=== PATIENT | male | born 1965 | race African-American/Black ===

== ENCOUNTER 2016-12-26 08:17 | Inpatient (IN) | payer OTHER ==
[~2016-12-26] VITALS: Ht 182.9 cm; Wt 93.6 kg
[~2016-12-26 08:17] MED LIST: AUGMENTIN 875 M1 TAB PO; DEPAKENE; DEPAKOTE 250MG250 MG PO; HCTZ 25MG TAB25 MG PO; LORTAB 5/500 501 TAB PO; MOTRIN800 MG PO; NAPROSYN500 MG PO; NORCO PO
[2016-12-26 08:31] VITALS: BP 130/76; PULSE 66; TEMP 98.3
[2016-12-26 09:12] LABS: BASO % 0.4 % (0.0-2.0); EOS # 0.1 (0.0-0.7); EOS % 1.5 % (0-4.0); GRAN # 2.7 (1.4-6.5); GRAN % 51.6 % (42.2-75.2); LYMPH # 1.4 (1.2-3.4); LYMPH % 26.3 % (20.0-51.0); MEAN CELL VOLUME 93 fl (80.0-100.0); MEAN CORPUSCULAR HGB CONC 31 g/dl (33.0-37.0); MONO % 19.8 % (1.7-9.3); PLATELET COUNT 139 K/mm3 (130-400); RED BLOOD COUNT 3.25 M/mm3 (4.20-5.60); WHITE BLOOD COUNT 5.2 K/mm3 (4.8-10.8)
[2016-12-26 09:13] LABS: HEMATOCRIT 30.3 % (42.0-52.0); HEMOGLOBIN 9.4 g/dl (13.5-18.0); MEAN CORPUSCULAR HEMOGLOBIN 29 pg (27.0-31.0)
[2016-12-26 09:26] LABS: ADJUSTED CALCIUM 9.2 mg/dL (8.4-10.2); ALBUMIN 3.6 gm/dL (3.5-5.0); BILIRUBIN,TOTAL 0.6 mg/dL (0.0-1.0); CALCIUM 8.9 mg/dL (8.4-10.2); POTASSIUM 4.5 mmol/L (3.4-5.0); TOTAL PROTEIN 7.3 gm/dL (6.4-8.2)
[2016-12-26] MEDS ORDERED: ZYLOPRIM 100MG100 MG PO (09:27)
[2016-12-26] MEDS ORDERED: NORVASC 10MG10 MG PO (09:27)
[2016-12-26] MEDS ORDERED: TENORMIN 2525 MG/TAB PO (09:28)
[2016-12-26] MEDS ORDERED: CALCITRIOL PO (09:28)
[2016-12-26] MEDS ORDERED: PHOS LO PO (09:29)
[2016-12-26] MEDS ORDERED: FERROUS SU325 MG/TAB PO (09:30)
[2016-12-26] MEDS ORDERED: COLACE 100100 MG/CAP PO (09:30)
[2016-12-26 09:32] LABS: CREATININE, serum 9.81 mg/dL (0.66-1.25)
[2016-12-26] MEDS ORDERED: CELLCEPT 250MG250 MG PO (09:32)
[2016-12-26] MEDS ORDERED: ZYPREXA7.5 MG PO (09:33)
[2016-12-26] MEDS ORDERED: SODIUM BICARBO650 MG PO (09:33)
[2016-12-26] MEDS ORDERED: DEPAKOTE 250MG250 MG PO (09:34)
[2016-12-26 15:46] VITALS: BP 107/68; PULSE 59; TEMP 97.8
[2016-12-26 21:06] VITALS: BP 118/85; PULSE 66; TEMP 98.6
[2016-12-27 00:28] LABS: HEPATITIS B CORE AB,TOTAL Negative (()); HEPATITIS B SURFACE AB-QL Positive (())
[2016-12-27 00:43] VITALS: BP 112/63; PULSE 49; TEMP 97.5
[2016-12-27 04:04] VITALS: BP 105/66; PULSE 51; TEMP 97.5
[2016-12-27 07:29] LABS: ALBUMIN 3.6 gm/dL (3.5-5.0); CALCIUM 9.1 mg/dL (8.4-10.2); PHOSPHOROUS 6.9 mg/dL (2.5-4.5); POTASSIUM 4.2 mmol/L (3.4-5.0)
[2016-12-27 07:35] LABS: CREATININE, serum 8.2 mg/dL (0.66-1.25)
[2016-12-27 07:49] VITALS: BP 119/77; PULSE 47; TEMP 97.9
[2016-12-27 14:51] VITALS: BP 121/65; PULSE 66
[2016-12-27 15:36] VITALS: BP 125/70; PULSE 68; TEMP 98.1
[2016-12-27 20:35] VITALS: BP 125/82; PULSE 90; TEMP 97.9
[2016-12-28 00:14] VITALS: BP 127/80; PULSE 61; TEMP 97.8
[2016-12-28 03:20] VITALS: BP 109/54; PULSE 55; TEMP 98
[2016-12-28 07:39] VITALS: BP 116/75; PULSE 71; TEMP 97.7
[2016-12-28 07:42] LABS: ALBUMIN 3.5 gm/dL (3.5-5.0); CALCIUM 9.3 mg/dL (8.4-10.2); PHOSPHOROUS 6.1 mg/dL (2.5-4.5)
[2016-12-28 07:44] LABS: CREATININE, serum 6.93 mg/dL (0.66-1.25)
[2016-12-28 12:02] VITALS: BP 114/78; PULSE 64; TEMP 98.1
[2016-12-28] MEDS ORDERED: NEPHROCAP PO (15:42)
[2016-12-28] MEDS ORDERED: LASIX 40MG TABL40 MG PO (15:42)
== END 2016-12-28 16:16 | disposition home or self-care (01) | DRG 682 ==
LOC: SDCO 08:17 → MEDICAL 08:18
PROVIDERS: Internal Medicine Nephrology; Nurse Practitioner
PROC: 5A1D70Z Performance of Urinary Filtration, Intermittent, Less than 6 Hours Per Day (ICD-10-PCS; principal; 2016-12-26)
DX: I12.0 Hypertensive chronic kidney disease with stage 5 chronic kidney disease or end stage renal disease (principal); N18.6 End stage renal disease; D63.1 Anemia in chronic kidney disease; F25.9 Schizoaffective disorder, unspecified
CPT/HCPCS: J0881

== ENCOUNTER → 2019-07-10 | Outpatient (CLI) | payer BC ==
[~2019-07-10] MED LIST changes: +CALCITRIOL PO; +CELLCEPT 250MG250 MG PO; +COLACE 100100 MG/CAP PO; +FERROUS SU325 MG/TAB PO; +LASIX 40MG TABL40 MG PO; +NEPHROCAP PO; +NORVASC 10MG10 MG PO; +PHOS LO PO; +SODIUM BICARBO650 MG PO; +TENORMIN 2525 MG/TAB PO; +ZYLOPRIM 100MG100 MG PO; +ZYPREXA7.5 MG PO
== END ==
LOC: ZCOL.LAB 17:25
DX: Z20.828 Contact with and (suspected) exposure to other viral communicable diseases (principal)

== ENCOUNTER → 2020-08-20 | Outpatient (CLI) | payer BC, MEDICARE ==
[2020-08-20 06:23] LABS: COLLECTION METHOD CLEAN CATCH
[2020-08-20 06:36] LABS: MEAN CELL VOLUME 102 fl (80.0-100.0); MEAN CORPUSCULAR HGB CONC 30 g/dl (33.0-37.0); PH 6 (5-8); PLATELET COUNT 118 K/mm3 (130-400); RED BLOOD COUNT 3.01 M/mm3 (4.20-5.60); REDCELL DISTRIBUTION WIDTH-CV 14.7 % (11.5-14.5); SQUAMOUS EPITHELIAL None Seen /hpf; URINE APPEARANCE Clear; URINE BACTERIA None Seen /hpf; URINE BILIRUBIN Negative (NEGATIVE); URINE BLOOD Negative (NEGATIVE); URINE COLOR Yellow; URINE GLUCOSE Negative (NEGATIVE); URINE KETONE Negative (NEGATIVE); URINE LEUKOCYTE ESTERASE Negative (NEGATIVE); URINE NITRATE Negative (NEGATIVE); URINE PROTEIN(semi-quant) Negative (NEGATIVE); URINE RBC 0-2 /hpf; URINE UROBILINOGEN Negative (NEGATIVE)
[2020-08-20 06:44] LABS: ALBUMIN 3.7 gm/dL (3.5-5.0); CALCIUM 10.1 mg/dL (8.4-10.2); CREATININE, serum 1.97 (0.66-1.25); POTASSIUM 4.6 mmol/L (3.4-5.0)
[2020-08-20 07:13] LABS: PHOSPHOROUS 2.6 mg/dL (2.5-4.5)
[2020-08-20 07:58] LABS: BAND 3 % (0-10); HYPOCHROMIA 1+; LYMPHOCYTE 50 % (20.0-51.0); METAMYELOCYTE 1 % (0-0); NEUTROPHILS 40 % (42.0-75.2); OVALOCYTES 1+; PLATELET ESTIMATE DECREASED (NORMAL); TEAR DROP CELLS 1+
[2020-08-20 08:21] LABS: HEMATOCRIT 30.6 % (42.0-52.0); HEMOGLOBIN 9.3 g/dl (13.5-18.0); MEAN CORPUSCULAR HEMOGLOBIN 31 pg (27.0-31.0)
[2020-08-20 23:42] LABS: PROGRAF 7.8 ng/mL (5.0-15.0)
[2020-08-21 14:53] LABS: CYTOMEGALOVIRUS DNA PCR 750 IU/mL (<=49); CYTOMEGALOVIRUS DNA PCR LOG 2.88 (<=1.69)
== END ==
LOC: COL.LAB 05:28
DX: Z48.22 Encounter for aftercare following kidney transplant (principal); Z79.899 Other long term (current) drug therapy

== ENCOUNTER → 2020-09-03 | Outpatient (CLI) | payer BC, MEDICARE ==
[2020-09-03 06:11] LABS: COLLECTION METHOD CLEAN CATCH
[2020-09-03 06:15] LABS: BASO % 0.8 % (0.0-2.0); EOS % 0.8 % (0-4.0); GRAN # 1.6 (1.4-6.5); HEMOGLOBIN 10.6 g/dl (13.5-18.0); LYMPH # 1.4 (1.2-3.4); LYMPH % 39.3 % (20.0-51.0); MEAN CELL VOLUME 97 fl (80.0-100.0); MEAN CORPUSCULAR HEMOGLOBIN 30 pg (27.0-31.0); MEAN CORPUSCULAR HGB CONC 31 g/dl (33.0-37.0); MONO # 0.5 (0.1-0.6); MONO % 12.7 % (1.7-9.3); PLATELET COUNT 151 K/mm3 (130-400); RED BLOOD COUNT 3.55 M/mm3 (4.20-5.60); REDCELL DISTRIBUTION WIDTH-CV 14.3 % (11.5-14.5)
[2020-09-03 06:21] LABS: PH 6 (5-8); SQUAMOUS EPITHELIAL None Seen /hpf; URINE APPEARANCE Clear; URINE BACTERIA None Seen /hpf; URINE BILIRUBIN Negative (NEGATIVE); URINE BLOOD Negative (NEGATIVE); URINE COLOR Yellow; URINE GLUCOSE Negative (NEGATIVE); URINE KETONE Trace (NEGATIVE); URINE LEUKOCYTE ESTERASE Negative (NEGATIVE); URINE NITRATE Negative (NEGATIVE); URINE PROTEIN(semi-quant) Negative (NEGATIVE); URINE RBC 0-2 /hpf; URINE UROBILINOGEN Negative (NEGATIVE)
[2020-09-03 06:28] LABS: ALBUMIN 3.9 gm/dL (3.5-5.0); CALCIUM 10.5 mg/dL (8.4-10.2); CREATININE, serum 1.9 (0.66-1.25); HEMATOCRIT 34.3 % (42.0-52.0); PHOSPHOROUS 3.2 mg/dL (2.5-4.5); POTASSIUM 4.8 mmol/L (3.4-5.0)
[2020-09-04 00:14] LABS: PROGRAF 14.1 ng/mL (5.0-15.0)
[2020-09-04 14:50] LABS: CYTOMEGALOVIRUS DNA PCR 207 IU/mL (<=49); CYTOMEGALOVIRUS DNA PCR LOG 2.32 (<=1.69)
== END ==
LOC: COL.LAB 05:38
DX: Z48.22 Encounter for aftercare following kidney transplant (principal); Z79.899 Other long term (current) drug therapy

== ENCOUNTER → 2020-09-10 | Outpatient (CLI) | payer BC, MEDICARE ==
[2020-09-10 07:36] LABS: COLLECTION METHOD CLEAN CATCH
[2020-09-10 07:37] LABS: HEMOGLOBIN 10.6 g/dl (13.5-18.0); MEAN CELL VOLUME 99 fl (80.0-100.0); MEAN CORPUSCULAR HEMOGLOBIN 30 pg (27.0-31.0); MEAN CORPUSCULAR HGB CONC 30 g/dl (33.0-37.0); MEAN PLATELET VOLUME 9.7 fl (7.4-10.4); PLATELET COUNT 151 K/mm3 (130-400); RED BLOOD COUNT 3.55 M/mm3 (4.20-5.60); REDCELL DISTRIBUTION WIDTH-CV 14.6 % (11.5-14.5)
[2020-09-10 07:39] LABS: HEMATOCRIT 35.1 % (42.0-52.0)
[2020-09-10 07:41] LABS: PH 6 (5-8); SQUAMOUS EPITHELIAL None Seen /hpf; URINE APPEARANCE Clear; URINE BACTERIA None Seen /hpf; URINE BILIRUBIN Negative (NEGATIVE); URINE BLOOD Negative (NEGATIVE); URINE COLOR Yellow; URINE GLUCOSE Negative (NEGATIVE); URINE KETONE Negative (NEGATIVE); URINE LEUKOCYTE ESTERASE Negative (NEGATIVE); URINE NITRATE Negative (NEGATIVE); URINE PROTEIN(semi-quant) Negative (NEGATIVE); URINE RBC 0-2 /hpf; URINE UROBILINOGEN Negative (NEGATIVE)
[2020-09-10 07:47] LABS: CALCIUM 10.2 mg/dL (8.4-10.2); CREATININE, serum 1.77 (0.66-1.25); MAGNESIUM 1.9 mg/dL (1.6-2.3)
[2020-09-10 08:07] LABS: BASOPHIL 1 % (0-2); EOSINOPHIL 1 % (0-4); LYMPHOCYTE 24 % (20.0-51.0); METAMYELOCYTE 1 % (0-0); NEUTROPHILS 60 % (42.0-75.2)
[2020-09-10 08:08] LABS: HYPOCHROMIA 3+; PLATELET ESTIMATE NORMAL (NORMAL)
[2020-09-10 22:07] LABS: PROGRAF 8.6 ng/mL (5.0-15.0)
[2020-09-15 14:18] LABS: CYTOMEGALOVIRUS DNA PCR 128 IU/mL (<=49); CYTOMEGALOVIRUS DNA PCR LOG 2.11 (<=1.69)
== END ==
LOC: COL.LAB 06:58
DX: Z48.22 Encounter for aftercare following kidney transplant (principal); Z79.899 Other long term (current) drug therapy

== ENCOUNTER → 2020-10-01 | Outpatient (CLI) | payer BC, MEDICARE ==
[2020-10-01 08:51] LABS: BASO % 0.7 % (0.0-2.0); EOS % 1.1 % (0-4.0); GRAN # 1.4 (1.4-6.5); GRAN % 52.3 % (42.2-75.2); HEMATOCRIT 37.3 % (42.0-52.0); HEMOGLOBIN 11.3 g/dl (13.5-18.0); LYMPH # 1.1 (1.2-3.4); MEAN CELL VOLUME 99 fl (80.0-100.0); MEAN CORPUSCULAR HEMOGLOBIN 30 pg (27.0-31.0); MEAN CORPUSCULAR HGB CONC 30 g/dl (33.0-37.0); MEAN PLATELET VOLUME 9.9 fl (7.4-10.4); MONO # 0.2 (0.1-0.6); MONO % 5.5 % (1.7-9.3); PLATELET COUNT 123 K/mm3 (130-400); RED BLOOD COUNT 3.77 M/mm3 (4.20-5.60); REDCELL DISTRIBUTION WIDTH-CV 14.7 % (11.5-14.5)
[2020-10-01 09:01] LABS: CALCIUM 10.4 mg/dL (8.4-10.2); CREATININE, serum 1.92 (0.66-1.25); MAGNESIUM 1.9 mg/dL (1.6-2.3); PHOSPHOROUS 3.1 mg/dL (2.5-4.5); POTASSIUM 5.1 mmol/L (3.4-5.0)
[2020-10-01 09:28] LABS: COLLECTION METHOD CLEAN CATCH
[2020-10-01 09:33] LABS: PH 6 (5-8); SQUAMOUS EPITHELIAL None Seen /hpf; URINE APPEARANCE Clear; URINE BACTERIA None Seen /hpf; URINE BILIRUBIN Negative (NEGATIVE); URINE BLOOD Negative (NEGATIVE); URINE COLOR Yellow; URINE GLUCOSE Negative (NEGATIVE); URINE KETONE Negative (NEGATIVE); URINE LEUKOCYTE ESTERASE Negative (NEGATIVE); URINE NITRATE Negative (NEGATIVE); URINE PROTEIN(semi-quant) Negative (NEGATIVE); URINE RBC None Seen /hpf; URINE UROBILINOGEN Negative (NEGATIVE)
[2020-10-02 00:25] LABS: PROGRAF 10.9 ng/mL (5.0-15.0)
[2020-10-06 12:47] LABS: CYTOMEGALOVIRUS DNA PCR Detected <50 IU/mL (()); CYTOMEGALOVIRUS DNA PCR LOG Detected <1.70 (())
== END ==
LOC: COL.LAB 06:55
DX: Z48.22 Encounter for aftercare following kidney transplant (principal)

== ENCOUNTER → 2020-10-16 | Outpatient (CLI) | payer BC, MEDICARE ==
[2020-10-16 08:54] LABS: BASO % 0.9 % (0.0-2.0); EOS % 0.9 % (0-4.0); GRAN # 0.9 (1.4-6.5); GRAN % 39.7 % (42.2-75.2); HEMATOCRIT 38.7 % (42.0-52.0); HEMOGLOBIN 11.8 g/dl (13.5-18.0); LYMPH % 45.6 % (20.0-51.0); MEAN CELL VOLUME 100 fl (80.0-100.0); MEAN CORPUSCULAR HEMOGLOBIN 31 pg (27.0-31.0); MEAN CORPUSCULAR HGB CONC 31 g/dl (33.0-37.0); MEAN PLATELET VOLUME 9.9 fl (7.4-10.4); MONO # 0.3 (0.1-0.6); PLATELET COUNT 130 K/mm3 (130-400); RED BLOOD COUNT 3.86 M/mm3 (4.20-5.60); REDCELL DISTRIBUTION WIDTH-CV 14.5 % (11.5-14.5)
[2020-10-16 09:04] LABS: ALBUMIN 4.1 gm/dL (3.5-5.0); CALCIUM 10.1 mg/dL (8.4-10.2); CREATININE, serum 1.68 (0.66-1.25); POTASSIUM 4.9 mmol/L (3.4-5.0)
[2020-10-16 09:52] LABS: COLLECTION METHOD CLEAN CATCH
[2020-10-16 10:13] LABS: PH 6 (5-8); SQUAMOUS EPITHELIAL None Seen /hpf; URINE APPEARANCE Clear; URINE BACTERIA None Seen /hpf; URINE BILIRUBIN Negative (NEGATIVE); URINE BLOOD Negative (NEGATIVE); URINE COLOR Straw; URINE GLUCOSE Negative (NEGATIVE); URINE KETONE Negative (NEGATIVE); URINE LEUKOCYTE ESTERASE Negative (NEGATIVE); URINE NITRATE Negative (NEGATIVE); URINE PROTEIN(semi-quant) Negative (NEGATIVE); URINE RBC None Seen /hpf; URINE UROBILINOGEN Negative (NEGATIVE)
[2020-10-17 00:51] LABS: PROGRAF 7.1 ng/mL (5.0-15.0)
[2020-10-20 15:43] LABS: CYTOMEGALOVIRUS DNA PCR <50 IU/mL (<=49); CYTOMEGALOVIRUS DNA PCR LOG Detected <1.70 (())
== END ==
LOC: COL.LAB 07:53
DX: Z48.22 Encounter for aftercare following kidney transplant (principal); Z79.899 Other long term (current) drug therapy; Z94.0 Kidney transplant status

== ENCOUNTER → 2020-10-29 | Outpatient (CLI) | payer BC, MEDICARE ==
[2020-10-29 08:27] LABS: COLLECTION METHOD CLEAN CATCH
[2020-10-29 08:30] LABS: BASO % 1.2 % (0.0-2.0); EOS % 0.8 % (0-4.0); GRAN # 0.8 (1.4-6.5); GRAN % 32.3 % (42.2-75.2); HEMATOCRIT 40.5 % (42.0-52.0); HEMOGLOBIN 12.2 g/dl (13.5-18.0); LYMPH # 1.3 (1.2-3.4); MEAN CELL VOLUME 101 fl (80.0-100.0); MEAN CORPUSCULAR HEMOGLOBIN 31 pg (27.0-31.0); MEAN CORPUSCULAR HGB CONC 30 g/dl (33.0-37.0); MEAN PLATELET VOLUME 9.9 fl (7.4-10.4); MONO # 0.4 (0.1-0.6); MONO % 14.7 % (1.7-9.3); PLATELET COUNT 124 K/mm3 (130-400); REDCELL DISTRIBUTION WIDTH-CV 14.6 % (11.5-14.5)
[2020-10-29 08:42] LABS: PH 6 (5-8); SQUAMOUS EPITHELIAL None Seen /hpf; URINE APPEARANCE Clear; URINE BACTERIA None Seen /hpf; URINE BILIRUBIN Negative (NEGATIVE); URINE BLOOD Negative (NEGATIVE); URINE COLOR Straw; URINE GLUCOSE Negative (NEGATIVE); URINE KETONE Negative (NEGATIVE); URINE LEUKOCYTE ESTERASE Negative (NEGATIVE); URINE NITRATE Negative (NEGATIVE); URINE PROTEIN(semi-quant) Negative (NEGATIVE); URINE RBC 0-2 /hpf; URINE UROBILINOGEN Negative (NEGATIVE)
[2020-10-29 08:43] LABS: CALCIUM 9.9 mg/dL (8.4-10.2); CREATININE, serum 1.79 (0.66-1.25); MAGNESIUM 1.8 mg/dL (1.6-2.3); PHOSPHOROUS 3.3 mg/dL (2.5-4.5)
[2020-10-29 23:29] LABS: PROGRAF 14.9 ng/mL (5.0-15.0)
[2020-10-30 13:07] LABS: CYTOMEGALOVIRUS DNA PCR Detected <50 IU/mL (()); CYTOMEGALOVIRUS DNA PCR LOG Detected <1.70 (())
== END ==
LOC: COL.LAB 07:07
DX: Z48.22 Encounter for aftercare following kidney transplant (principal); Z79.899 Other long term (current) drug therapy

== ENCOUNTER → 2020-11-12 | Outpatient (CLI) | payer BC, MEDICARE ==
[2020-11-12 07:55] LABS: HEMATOCRIT 39.5 % (42.0-52.0); HEMOGLOBIN 12.2 g/dl (13.5-18.0); MEAN CELL VOLUME 99 fl (80.0-100.0); MEAN CORPUSCULAR HEMOGLOBIN 31 pg (27.0-31.0); MEAN CORPUSCULAR HGB CONC 31 g/dl (33.0-37.0); MEAN PLATELET VOLUME 10.2 fl (7.4-10.4); PH 7 (5-8); PLATELET COUNT 107 K/mm3 (130-400); RED BLOOD COUNT 3.99 M/mm3 (4.20-5.60); REDCELL DISTRIBUTION WIDTH-CV 14.1 % (11.5-14.5); SQUAMOUS EPITHELIAL 0-2 /hpf; URINE APPEARANCE Clear; URINE BACTERIA None Seen /hpf; URINE BILIRUBIN Negative (NEGATIVE); URINE BLOOD Negative (NEGATIVE); URINE COLOR Yellow; URINE GLUCOSE Negative (NEGATIVE); URINE KETONE Negative (NEGATIVE); URINE LEUKOCYTE ESTERASE Negative (NEGATIVE); URINE NITRATE Negative (NEGATIVE); URINE PROTEIN(semi-quant) Negative (NEGATIVE); URINE RBC None Seen /hpf; URINE UROBILINOGEN Negative (NEGATIVE)
[2020-11-12 07:59] LABS: ALBUMIN 3.9 gm/dL (3.5-5.0); CREATININE, serum 1.78 (0.66-1.25); MAGNESIUM 1.6 mg/dL (1.6-2.3); PHOSPHOROUS 2.9 mg/dL (2.5-4.5); POTASSIUM 4.7 mmol/L (3.4-5.0)
[2020-11-12 08:04] LABS: BAND 3 % (0-10); EOSINOPHIL 1 % (0-4); LYMPHOCYTE 49 % (20.0-51.0); METAMYELOCYTE 1 % (0-0); NEUTROPHILS 35 % (42.0-75.2); PLATELET ESTIMATE DECREASED (NORMAL)
[2020-11-12 08:05] LABS: HYPOCHROMIA 1+
[2020-11-12 08:27] LABS: COLLECTION METHOD CLEAN CATCH
[2020-11-13 17:48] LABS: CYTOMEGALOVIRUS DNA PCR <50 IU/mL (<=49); CYTOMEGALOVIRUS DNA PCR LOG Detected <1.70 (())
== END ==
LOC: COL.LAB 06:55
DX: Z48.22 Encounter for aftercare following kidney transplant (principal); Z79.899 Other long term (current) drug therapy

== ENCOUNTER → 2020-11-13 | Outpatient (CLI) | payer BC, MEDICARE | LOC: COL.LAB 14:23 | DX: Z94.0 Kidney transplant status (principal) ==

== ENCOUNTER → 2020-11-24 | Outpatient (CLI) | payer BC, MEDICARE ==
[2020-11-24 07:46] LABS: COLLECTION METHOD CLEAN CATCH
[2020-11-24 07:58] LABS: EOS % 1.4 % (0-4.0); GRAN # 0.7 (1.4-6.5); GRAN % 33.8 % (42.2-75.2); HEMATOCRIT 37.5 % (42.0-52.0); HEMOGLOBIN 11.9 g/dl (13.5-18.0); LYMPH % 46.9 % (20.0-51.0); MEAN CELL VOLUME 98 fl (80.0-100.0); MEAN CORPUSCULAR HEMOGLOBIN 31 pg (27.0-31.0); MEAN CORPUSCULAR HGB CONC 32 g/dl (33.0-37.0); MEAN PLATELET VOLUME 9.7 fl (7.4-10.4); MONO # 0.3 (0.1-0.6); MONO % 15.9 % (1.7-9.3); PLATELET COUNT 131 K/mm3 (130-400); RED BLOOD COUNT 3.82 M/mm3 (4.20-5.60); REDCELL DISTRIBUTION WIDTH-CV 14.2 % (11.5-14.5)
[2020-11-24 08:00] LABS: ALBUMIN 3.8 gm/dL (3.5-5.0); CALCIUM 10.2 mg/dL (8.4-10.2); CREATININE, serum 1.7 (0.66-1.25); MAGNESIUM 1.8 mg/dL (1.6-2.3); PHOSPHOROUS 3.2 mg/dL (2.5-4.5); POTASSIUM 4.7 mmol/L (3.4-5.0)
[2020-11-24 08:15] LABS: PH 6 (5-8); SQUAMOUS EPITHELIAL None Seen /hpf; URINE APPEARANCE Clear; URINE BACTERIA None Seen /hpf; URINE BILIRUBIN Negative (NEGATIVE); URINE BLOOD Negative (NEGATIVE); URINE COLOR Straw; URINE GLUCOSE Negative (NEGATIVE); URINE KETONE Negative (NEGATIVE); URINE LEUKOCYTE ESTERASE Negative (NEGATIVE); URINE NITRATE Negative (NEGATIVE); URINE PROTEIN(semi-quant) Negative (NEGATIVE); URINE RBC 0-2 /hpf; URINE UROBILINOGEN Negative (NEGATIVE)
[2020-11-24 23:00] LABS: PROGRAF 9.7 ng/mL (5.0-15.0)
[2020-11-26 08:18] LABS: CYTOMEGALOVIRUS DNA PCR <50 IU/mL (<=49); CYTOMEGALOVIRUS DNA PCR LOG Detected <1.70 (())
== END ==
LOC: COL.LAB 07:02
DX: Z48.22 Encounter for aftercare following kidney transplant (principal); Z79.899 Other long term (current) drug therapy

== ENCOUNTER → 2020-12-01 | Outpatient (CLI) | payer BC, MEDICARE ==
[2020-12-01 07:51] LABS: COLLECTION METHOD CLEAN CATCH
[2020-12-01 08:01] LABS: BASO % 0.9 % (0.0-2.0); EOS % 0.9 % (0-4.0); GRAN # 0.6 (1.4-6.5); GRAN % 28.5 % (42.2-75.2); HEMATOCRIT 38.2 % (42.0-52.0); HEMOGLOBIN 12.1 g/dl (13.5-18.0); LYMPH # 1.2 (1.2-3.4); LYMPH % 53.4 % (20.0-51.0); MEAN CELL VOLUME 97 fl (80.0-100.0); MEAN CORPUSCULAR HEMOGLOBIN 31 pg (27.0-31.0); MEAN CORPUSCULAR HGB CONC 32 g/dl (33.0-37.0); MEAN PLATELET VOLUME 9.7 fl (7.4-10.4); MONO # 0.3 (0.1-0.6); MONO % 15.4 % (1.7-9.3); PLATELET COUNT 114 K/mm3 (130-400); RED BLOOD COUNT 3.93 M/mm3 (4.20-5.60); REDCELL DISTRIBUTION WIDTH-CV 13.9 % (11.5-14.5)
[2020-12-01 08:05] LABS: ALBUMIN 3.9 gm/dL (3.5-5.0); CALCIUM 9.8 mg/dL (8.4-10.2); CREATININE, serum 1.98 (0.66-1.25); MAGNESIUM 1.9 mg/dL (1.6-2.3); PH 7 (5-8); PHOSPHOROUS 3.6 mg/dL (2.5-4.5); SQUAMOUS EPITHELIAL None Seen /hpf; URINE APPEARANCE Clear; URINE BACTERIA None Seen /hpf; URINE BILIRUBIN Negative (NEGATIVE); URINE BLOOD Negative (NEGATIVE); URINE COLOR Straw; URINE GLUCOSE Negative (NEGATIVE); URINE KETONE Negative (NEGATIVE); URINE LEUKOCYTE ESTERASE Negative (NEGATIVE); URINE NITRATE Negative (NEGATIVE); URINE PROTEIN(semi-quant) Negative (NEGATIVE); URINE RBC 0-2 /hpf; URINE UROBILINOGEN Negative (NEGATIVE)
[2020-12-02 13:59] LABS: PROGRAF 17.2 ng/mL (5.0-15.0)
[2020-12-05 08:48] LABS: CYTOMEGALOVIRUS DNA PCR Detected <50 IU/mL (()); CYTOMEGALOVIRUS DNA PCR LOG Detected <1.70 (())
== END ==
LOC: COL.LAB 07:19
DX: Z48.22 Encounter for aftercare following kidney transplant (principal); Z79.899 Other long term (current) drug therapy

== ENCOUNTER → 2020-12-08 | Outpatient (CLI) | payer BC, MEDICARE ==
[2020-12-08 08:16] LABS: GRAN # 0.6 (1.4-6.5); GRAN % 29.9 % (42.2-75.2); HEMATOCRIT 38.7 % (42.0-52.0); HEMOGLOBIN 12.1 g/dl (13.5-18.0); LYMPH # 1.1 (1.2-3.4); LYMPH % 53.8 % (20.0-51.0); MEAN CELL VOLUME 99 fl (80.0-100.0); MEAN CORPUSCULAR HEMOGLOBIN 31 pg (27.0-31.0); MEAN CORPUSCULAR HGB CONC 31 g/dl (33.0-37.0); MEAN PLATELET VOLUME 10.1 fl (7.4-10.4); MONO # 0.3 (0.1-0.6); MONO % 13.8 % (1.7-9.3); PLATELET COUNT 111 K/mm3 (130-400); RED BLOOD COUNT 3.93 M/mm3 (4.20-5.60); REDCELL DISTRIBUTION WIDTH-CV 13.6 % (11.5-14.5)
[2020-12-08 08:30] LABS: PH 7 (5-8); SQUAMOUS EPITHELIAL 0-2 /hpf; URINE APPEARANCE Clear; URINE BACTERIA None Seen /hpf; URINE BILIRUBIN Negative (NEGATIVE); URINE BLOOD Negative (NEGATIVE); URINE COLOR Straw; URINE GLUCOSE Negative (NEGATIVE); URINE KETONE Negative (NEGATIVE); URINE LEUKOCYTE ESTERASE Negative (NEGATIVE); URINE NITRATE Negative (NEGATIVE); URINE PROTEIN(semi-quant) Negative (NEGATIVE); URINE RBC None Seen /hpf; URINE UROBILINOGEN Negative (NEGATIVE)
[2020-12-08 08:31] LABS: ALBUMIN 3.9 gm/dL (3.5-5.0); CREATININE, serum 1.98 (0.66-1.25); MAGNESIUM 1.9 mg/dL (1.6-2.3); PHOSPHOROUS 3.6 mg/dL (2.5-4.5); POTASSIUM 4.8 mmol/L (3.4-5.0)
[2020-12-08 08:56] LABS: COLLECTION METHOD CLEAN CATCH
[2020-12-16 08:03] LABS: CYTOMEGALOVIRUS DNA PCR <50 IU/mL (<=49); CYTOMEGALOVIRUS DNA PCR LOG Detected <1.70 (())
== END ==
LOC: COL.LAB 07:29
DX: Z48.22 Encounter for aftercare following kidney transplant (principal)

== ENCOUNTER → 2020-12-15 | Outpatient (CLI) | payer BC, MEDICARE ==
[2020-12-15 07:36] LABS: COLLECTION METHOD CLEAN CATCH
[2020-12-15 07:54] LABS: ALBUMIN 3.3 gm/dL (3.5-5.0); CALCIUM 9.6 mg/dL (8.4-10.2); CREATININE, serum 1.82 mg/dL (0.72-1.25); HEMATOCRIT 37.9 % (42.0-52.0); MAGNESIUM 1.8 mg/dL (1.6-2.6); MEAN CELL VOLUME 99 fl (80.0-100.0); MEAN CORPUSCULAR HEMOGLOBIN 31 pg (27.0-31.0); MEAN CORPUSCULAR HGB CONC 32 g/dl (33.0-37.0); MEAN PLATELET VOLUME 10.1 fl (7.4-10.4); PH 6 (5-8); PLATELET COUNT 121 K/mm3 (130-400); POTASSIUM 4.7 mmol/L (3.5-4.5); RED BLOOD COUNT 3.84 M/mm3 (4.20-5.60); REDCELL DISTRIBUTION WIDTH-CV 13.6 % (11.5-14.5); SQUAMOUS EPITHELIAL None Seen /hpf; URINE APPEARANCE Clear; URINE BACTERIA None Seen /hpf; URINE BILIRUBIN Negative (NEGATIVE); URINE BLOOD Negative (NEGATIVE); URINE COLOR Yellow; URINE GLUCOSE Negative (NEGATIVE); URINE KETONE Negative (NEGATIVE); URINE LEUKOCYTE ESTERASE Negative (NEGATIVE); URINE NITRATE Negative (NEGATIVE); URINE PROTEIN(semi-quant) Negative (NEGATIVE); URINE RBC None Seen /hpf; URINE UROBILINOGEN Negative (NEGATIVE)
[2020-12-15 08:30] LABS: BAND 2 % (0-10); BASOPHIL 1 % (0-2); LYMPHOCYTE 50 % (20.0-51.0); NEUTROPHILS 30 % (42.0-75.2)
[2020-12-15 08:31] LABS: HYPOCHROMIA 1+; PLATELET ESTIMATE DECREASED (NORMAL)
[2020-12-15 23:55] LABS: PROGRAF 16.6 ng/mL (5.0-15.0)
[2020-12-18 13:57] LABS: CYTOMEGALOVIRUS DNA PCR Not Detected (()); CYTOMEGALOVIRUS DNA PCR LOG Not Detected (())
== END ==
LOC: COL.LAB 07:04
DX: Z48.22 Encounter for aftercare following kidney transplant (principal); Z79.899 Other long term (current) drug therapy

== ENCOUNTER → 2020-12-22 | Outpatient (CLI) | payer BC, MEDICARE ==
[2020-12-22 08:04] LABS: HEMOGLOBIN 11.8 g/dl (13.5-18.0); MEAN CELL VOLUME 99 fl (80.0-100.0); MEAN CORPUSCULAR HEMOGLOBIN 32 pg (27.0-31.0); MEAN CORPUSCULAR HGB CONC 32 g/dl (33.0-37.0); MEAN PLATELET VOLUME 10.2 fl (7.4-10.4); PLATELET COUNT 120 K/mm3 (130-400); RED BLOOD COUNT 3.74 M/mm3 (4.20-5.60); REDCELL DISTRIBUTION WIDTH-CV 13.4 % (11.5-14.5)
[2020-12-22 08:21] LABS: ALBUMIN 3.5 gm/dL (3.5-5.0); CREATININE, serum 1.9 mg/dL (0.72-1.25); PHOSPHOROUS 2.7 mg/dL (2.3-4.7); POTASSIUM 4.8 mmol/L (3.5-4.5)
[2020-12-22 08:59] LABS: BAND 5 % (0-10); EOSINOPHIL 2 % (0-4); LYMPHOCYTE 56 % (20.0-51.0); NEUTROPHILS 29 % (42.0-75.2); PLATELET ESTIMATE DECREASED (NORMAL)
[2020-12-22 09:14] LABS: COLLECTION METHOD CLEAN CATCH
[2020-12-22 09:32] LABS: PH 6 (5-8); SQUAMOUS EPITHELIAL 0-2 /hpf; URINE APPEARANCE Clear; URINE BACTERIA None Seen /hpf; URINE BILIRUBIN Negative (NEGATIVE); URINE BLOOD Negative (NEGATIVE); URINE COLOR Yellow; URINE GLUCOSE Negative (NEGATIVE); URINE KETONE Negative (NEGATIVE); URINE LEUKOCYTE ESTERASE Negative (NEGATIVE); URINE NITRATE Negative (NEGATIVE); URINE PROTEIN(semi-quant) Negative (NEGATIVE); URINE RBC 0-2 /hpf; URINE UROBILINOGEN Negative (NEGATIVE)
[2020-12-22 22:54] LABS: PROGRAF 13.2 ng/mL (5.0-15.0)
[2020-12-25 13:12] LABS: CYTOMEGALOVIRUS DNA PCR Not Detected (()); CYTOMEGALOVIRUS DNA PCR LOG Not Detected (())
== END ==
LOC: COL.LAB 07:02
DX: Z48.22 Encounter for aftercare following kidney transplant (principal); Z79.899 Other long term (current) drug therapy

== ENCOUNTER → 2020-12-31 | Outpatient (CLI) | payer BC, MEDICARE ==
[2020-12-31 08:02] LABS: HEMATOCRIT 39.6 % (42.0-52.0); HEMOGLOBIN 12.4 g/dl (13.5-18.0); MEAN CELL VOLUME 100 fl (80.0-100.0); MEAN CORPUSCULAR HEMOGLOBIN 31 pg (27.0-31.0); MEAN CORPUSCULAR HGB CONC 31 g/dl (33.0-37.0); PLATELET COUNT 119 K/mm3 (130-400); RED BLOOD COUNT 3.96 M/mm3 (4.20-5.60); REDCELL DISTRIBUTION WIDTH-CV 13.2 % (11.5-14.5)
[2020-12-31 08:06] LABS: MUCOUS Present /lpf; PH 7 (5-8); SQUAMOUS EPITHELIAL None Seen /hpf; URINE APPEARANCE Clear; URINE BACTERIA None Seen /hpf; URINE BILIRUBIN Negative (NEGATIVE); URINE BLOOD Negative (NEGATIVE); URINE COLOR Yellow; URINE GLUCOSE Negative (NEGATIVE); URINE KETONE Negative (NEGATIVE); URINE LEUKOCYTE ESTERASE Negative (NEGATIVE); URINE NITRATE Negative (NEGATIVE); URINE PROTEIN(semi-quant) Negative (NEGATIVE); URINE RBC 0-2 /hpf; URINE UROBILINOGEN Negative (NEGATIVE)
[2020-12-31 08:25] LABS: ALBUMIN 3.4 gm/dL (3.5-5.0); CALCIUM 10.4 mg/dL (8.4-10.2); CREATININE, serum 1.87 mg/dL (0.72-1.25); MAGNESIUM 1.6 mg/dL (1.6-2.6); PHOSPHOROUS 2.9 mg/dL (2.3-4.7); POTASSIUM 4.5 mmol/L (3.5-4.5)
[2020-12-31 08:33] LABS: BAND 9 % (0-10); BASOPHIL 1 % (0-2); EOSINOPHIL 1 % (0-4); LYMPHOCYTE 38 % (20.0-51.0); NEUTROPHILS 21 % (42.0-75.2); PLATELET ESTIMATE DECREASED (NORMAL)
[2020-12-31 09:03] LABS: COLLECTION METHOD CLEAN CATCH
== END ==
LOC: COL.LAB 07:29 → ZCOL.LAB 07:29
DX: Z48.22 Encounter for aftercare following kidney transplant (principal); Z79.899 Other long term (current) drug therapy

== ENCOUNTER → 2021-01-07 | Outpatient (CLI) | payer BC, MEDICARE ==
[2021-01-07 07:42] LABS: COLLECTION METHOD CLEAN CATCH
[2021-01-07 07:52] LABS: HEMATOCRIT 40.7 % (42.0-52.0); HEMOGLOBIN 12.7 g/dl (13.5-18.0); MEAN CELL VOLUME 99 fl (80.0-100.0); MEAN CORPUSCULAR HEMOGLOBIN 31 pg (27.0-31.0); MEAN CORPUSCULAR HGB CONC 31 g/dl (33.0-37.0); MUCOUS Present /lpf; PH 7 (5-8); PLATELET COUNT 101 K/mm3 (130-400); RED BLOOD COUNT 4.11 M/mm3 (4.20-5.60); SQUAMOUS EPITHELIAL None Seen /hpf; URINE APPEARANCE Clear; URINE BACTERIA None Seen /hpf; URINE BILIRUBIN Negative (NEGATIVE); URINE BLOOD Negative (NEGATIVE); URINE COLOR Yellow; URINE GLUCOSE Negative (NEGATIVE); URINE KETONE Negative (NEGATIVE); URINE LEUKOCYTE ESTERASE Negative (NEGATIVE); URINE NITRATE Negative (NEGATIVE); URINE PROTEIN(semi-quant) Negative (NEGATIVE); URINE RBC 0-2 /hpf; URINE UROBILINOGEN Negative (NEGATIVE)
[2021-01-07 07:53] LABS: MEAN PLATELET VOLUME 10.4 fl (7.4-10.4)
[2021-01-07 08:02] LABS: ALBUMIN 3.4 gm/dL (3.5-5.0); CALCIUM 10.4 mg/dL (8.4-10.2); CREATININE, serum 1.68 mg/dL (0.72-1.25); MAGNESIUM 1.9 mg/dL (1.6-2.6); PHOSPHOROUS 2.7 mg/dL (2.3-4.7); POTASSIUM 4.5 mmol/L (3.5-4.5)
[2021-01-07 08:20] LABS: BAND 1 % (0-10); EOSINOPHIL 1 % (0-4); LYMPHOCYTE 44 % (20.0-51.0); NEUTROPHILS 31 % (42.0-75.2); PLATELET ESTIMATE DECREASED (NORMAL)
[2021-01-07 08:22] LABS: HYPOCHROMIA 2+
[2021-01-08] LABS: PROGRAF 6.5 ng/mL (5.0-15.0)
[2021-01-12 14:31] LABS: CYTOMEGALOVIRUS DNA PCR <50 IU/mL (<=49); CYTOMEGALOVIRUS DNA PCR LOG Detected <1.70 (())
== END ==
LOC: COL.LAB 07:07
DX: Z48.22 Encounter for aftercare following kidney transplant (principal); Z79.899 Other long term (current) drug therapy

== ENCOUNTER → 2021-01-14 | Outpatient (CLI) | payer BC, MEDICARE ==
[2021-01-14 07:40] LABS: HEMATOCRIT 37.6 % (42.0-52.0); HEMOGLOBIN 11.9 g/dl (13.5-18.0); MEAN CELL VOLUME 97 fl (80.0-100.0); MEAN CORPUSCULAR HEMOGLOBIN 31 pg (27.0-31.0); MEAN CORPUSCULAR HGB CONC 32 g/dl (33.0-37.0); MEAN PLATELET VOLUME 10.1 fl (7.4-10.4); PLATELET COUNT 118 K/mm3 (130-400); RED BLOOD COUNT 3.87 M/mm3 (4.20-5.60); REDCELL DISTRIBUTION WIDTH-CV 12.8 % (11.5-14.5)
[2021-01-14 07:44] LABS: PH 6 (5-8); SQUAMOUS EPITHELIAL None Seen /hpf; URINE APPEARANCE Clear; URINE BACTERIA None Seen /hpf; URINE BILIRUBIN Negative (NEGATIVE); URINE BLOOD Negative (NEGATIVE); URINE COLOR Yellow; URINE GLUCOSE Negative (NEGATIVE); URINE KETONE Negative (NEGATIVE); URINE LEUKOCYTE ESTERASE Negative (NEGATIVE); URINE NITRATE Negative (NEGATIVE); URINE PROTEIN(semi-quant) Negative (NEGATIVE); URINE RBC 0-2 /hpf; URINE UROBILINOGEN Negative (NEGATIVE)
[2021-01-14 07:58] LABS: ALBUMIN 3.3 gm/dL (3.5-5.0); CALCIUM 10.1 mg/dL (8.4-10.2); CREATININE, serum 1.59 mg/dL (0.72-1.25); MAGNESIUM 1.5 mg/dL (1.6-2.6); PHOSPHOROUS 3.2 mg/dL (2.3-4.7); POTASSIUM 4.3 mmol/L (3.5-4.5)
[2021-01-14 07:59] LABS: COLLECTION METHOD CLEAN CATCH
[2021-01-14 08:53] LABS: BAND 3 % (0-10); EOSINOPHIL 2 % (0-4); NEUTROPHILS 29 % (42.0-75.2)
[2021-01-14 08:54] LABS: LYMPHOCYTE 36 % (20.0-51.0)
[2021-01-14 08:55] LABS: PLATELET ESTIMATE DECREASED (NORMAL)
[2021-01-15 14:19] LABS: CYTOMEGALOVIRUS DNA PCR Detected <50 IU/mL (()); CYTOMEGALOVIRUS DNA PCR LOG Detected <1.70 (())
[2021-01-15 14:39] LABS: PROGRAF 11.2 ng/mL (5.0-15.0)
== END ==
LOC: COL.LAB 07:04
DX: Z48.22 Encounter for aftercare following kidney transplant (principal); Z79.899 Other long term (current) drug therapy

== ENCOUNTER → 2021-01-21 | Outpatient (CLI) | payer BC ==
[2021-01-21 07:56] LABS: HEMATOCRIT 38.9 % (42.0-52.0); HEMOGLOBIN 12.4 g/dl (13.5-18.0); MEAN CELL VOLUME 98 fl (80.0-100.0); MEAN CORPUSCULAR HEMOGLOBIN 31 pg (27.0-31.0); MEAN CORPUSCULAR HGB CONC 32 g/dl (33.0-37.0); MEAN PLATELET VOLUME 9.7 fl (7.4-10.4); PLATELET COUNT 109 K/mm3 (130-400); RED BLOOD COUNT 3.99 M/mm3 (4.20-5.60); REDCELL DISTRIBUTION WIDTH-CV 12.5 % (11.5-14.5)
[2021-01-21 08:05] LABS: PH 6 (5-8); SQUAMOUS EPITHELIAL None Seen /hpf; URINE APPEARANCE Clear; URINE BACTERIA None Seen /hpf; URINE BILIRUBIN Negative (NEGATIVE); URINE BLOOD Negative (NEGATIVE); URINE COLOR Yellow; URINE GLUCOSE Negative (NEGATIVE); URINE KETONE Negative (NEGATIVE); URINE LEUKOCYTE ESTERASE Negative (NEGATIVE); URINE NITRATE Negative (NEGATIVE); URINE PROTEIN(semi-quant) Negative (NEGATIVE); URINE RBC 0-2 /hpf; URINE UROBILINOGEN Negative (NEGATIVE)
[2021-01-21 08:14] LABS: ALBUMIN 3.2 gm/dL (3.5-5.0); CALCIUM 10.1 mg/dL (8.4-10.2); CREATININE, serum 1.66 mg/dL (0.72-1.25); MAGNESIUM 1.6 mg/dL (1.6-2.6); PHOSPHOROUS 2.9 mg/dL (2.3-4.7); POTASSIUM 4.4 mmol/L (3.5-4.5)
[2021-01-21 08:47] LABS: EOSINOPHIL 1 % (0-4); LYMPHOCYTE 39 % (20.0-51.0); NEUTROPHILS 30 % (42.0-75.2)
[2021-01-21 08:48] LABS: HYPOCHROMIA 2+; PLATELET ESTIMATE DECREASED (NORMAL)
[2021-01-21 08:55] LABS: COLLECTION METHOD CLEAN CATCH
[2021-01-21 23:30] LABS: PROGRAF 9.4 ng/mL (5.0-15.0)
[2021-01-22 15:09] LABS: CYTOMEGALOVIRUS DNA PCR <50 IU/mL (<=49); CYTOMEGALOVIRUS DNA PCR LOG Detected <1.70 (())
== END ==
LOC: COL.LAB 07:10
DX: Z48.22 Encounter for aftercare following kidney transplant (principal); Z79.899 Other long term (current) drug therapy

== ENCOUNTER → 2021-01-28 | Outpatient (CLI) | payer BC ==
[2021-01-28 08:50] LABS: COLLECTION METHOD CLEAN CATCH
[2021-01-28 08:59] LABS: HEMATOCRIT 39.1 % (42.0-52.0); HEMOGLOBIN 12.5 g/dl (13.5-18.0); MEAN CELL VOLUME 98 fl (80.0-100.0); MEAN CORPUSCULAR HEMOGLOBIN 31 pg (27.0-31.0); MEAN CORPUSCULAR HGB CONC 32 g/dl (33.0-37.0); MEAN PLATELET VOLUME 10.1 fl (7.4-10.4); PH 7 (5-8); PLATELET COUNT 114 K/mm3 (130-400); RED BLOOD COUNT 4.01 M/mm3 (4.20-5.60); REDCELL DISTRIBUTION WIDTH-CV 12.5 % (11.5-14.5); SQUAMOUS EPITHELIAL None Seen /hpf; URINE APPEARANCE Clear; URINE BACTERIA None Seen /hpf; URINE BILIRUBIN Negative (NEGATIVE); URINE BLOOD Negative (NEGATIVE); URINE COLOR Straw; URINE GLUCOSE Negative (NEGATIVE); URINE KETONE Negative (NEGATIVE); URINE LEUKOCYTE ESTERASE Negative (NEGATIVE); URINE NITRATE Negative (NEGATIVE); URINE PROTEIN(semi-quant) Negative (NEGATIVE); URINE RBC 0-2 /hpf; URINE UROBILINOGEN Negative (NEGATIVE)
[2021-01-28 09:15] LABS: ALBUMIN 3.1 gm/dL (3.5-5.0); CALCIUM 9.8 mg/dL (8.4-10.2); CREATININE, serum 1.81 mg/dL (0.72-1.25); MAGNESIUM 1.6 mg/dL (1.6-2.6); PHOSPHOROUS 2.8 mg/dL (2.3-4.7); POTASSIUM 4.3 mmol/L (3.5-4.5)
[2021-01-28 09:20] LABS: EOSINOPHIL 1 % (0-4); LYMPHOCYTE 32 % (20.0-51.0); MYELOCYTE 6 % (0-0); NEUTROPHILS 38 % (42.0-75.2); PLATELET ESTIMATE DECREASED (NORMAL)
[2021-01-29 13:23] LABS: CYTOMEGALOVIRUS DNA PCR Detected <50 IU/mL (()); CYTOMEGALOVIRUS DNA PCR LOG Detected <1.70 (())
[2021-01-29 15:08] LABS: PROGRAF 10.2 ng/mL (5.0-15.0)
== END ==
LOC: COL.LAB 08:18
DX: Z48.22 Encounter for aftercare following kidney transplant (principal); Z79.899 Other long term (current) drug therapy

== ENCOUNTER → 2021-02-10 | Outpatient (CLI) | payer BC ==
[2021-02-10 07:43] LABS: HEMATOCRIT 38.6 % (42.0-52.0); HEMOGLOBIN 12.4 g/dl (13.5-18.0); MEAN CELL VOLUME 97 fl (80.0-100.0); MEAN CORPUSCULAR HEMOGLOBIN 31 pg (27.0-31.0); MEAN CORPUSCULAR HGB CONC 32 g/dl (33.0-37.0); PLATELET COUNT 110 K/mm3 (130-400); RED BLOOD COUNT 3.99 M/mm3 (4.20-5.60); REDCELL DISTRIBUTION WIDTH-CV 12.3 % (11.5-14.5)
[2021-02-10 07:45] LABS: PH 6 (5-8); SQUAMOUS EPITHELIAL 0-2 /hpf (0-10); URINE APPEARANCE Clear (CLEAR/HAZY); URINE BACTERIA None Seen (NONE SEEN); URINE BILIRUBIN Negative (NEGATIVE); URINE BLOOD Negative (NEGATIVE); URINE COLOR Yellow (YELLOW); URINE GLUCOSE Negative (NEGATIVE); URINE KETONE Negative (NEGATIVE); URINE LEUKOCYTE ESTERASE Negative (NEGATIVE); URINE NITRATE Negative (NEGATIVE); URINE PROTEIN(semi-quant) Negative (NEGATIVE); URINE UROBILINOGEN Negative (NEGATIVE)
[2021-02-10 08:12] LABS: COLLECTION METHOD CLEAN CATCH
[2021-02-10 08:29] LABS: ALBUMIN 3.7 gm/dL (3.5-5.0); CALCIUM 10.3 mg/dL (8.4-10.2); CREATININE, serum 1.86 mg/dL (0.72-1.25); MAGNESIUM 1.6 mg/dL (1.6-2.6); PHOSPHOROUS 2.5 mg/dL (2.3-4.7); POTASSIUM 4.6 mmol/L (3.5-4.5)
[2021-02-10 08:42] LABS: BAND 3 % (0-10); LYMPHOCYTE 39 % (20.0-51.0); NEUTROPHILS 34 % (42.0-75.2)
[2021-02-10 08:45] LABS: HYPOCHROMIA 1+; PLATELET ESTIMATE DECREASED (NORMAL)
[2021-02-10 19:19] LABS: PROGRAF 13.1 ng/mL (5.0-15.0)
[2021-02-16 14:26] LABS: CYTOMEGALOVIRUS DNA PCR LOG 1.82 (<=1.69)
== END ==
LOC: COL.LAB 07:07
DX: Z48.22 Encounter for aftercare following kidney transplant (principal); Z79.899 Other long term (current) drug therapy

== ENCOUNTER → 2021-02-25 | Outpatient (CLI) | payer BC ==
[2021-02-25 07:54] LABS: HEMATOCRIT 37.7 % (42.0-52.0); MEAN CELL VOLUME 97 fl (80.0-100.0); MEAN CORPUSCULAR HEMOGLOBIN 31 pg (27.0-31.0); MEAN CORPUSCULAR HGB CONC 32 g/dl (33.0-37.0); MEAN PLATELET VOLUME 9.6 fl (7.4-10.4); PLATELET COUNT 130 K/mm3 (130-400); RED BLOOD COUNT 3.89 M/mm3 (4.20-5.60); REDCELL DISTRIBUTION WIDTH-CV 12.4 % (11.5-14.5)
[2021-02-25 07:58] LABS: MUCOUS Present (NOT PRESENT); PH 6 (5-8); SQUAMOUS EPITHELIAL None Seen /hpf (0-10); URINE APPEARANCE Clear (CLEAR/HAZY); URINE BACTERIA None Seen (NONE SEEN); URINE BILIRUBIN Negative (NEGATIVE); URINE BLOOD Negative (NEGATIVE); URINE COLOR Yellow (YELLOW); URINE GLUCOSE Negative (NEGATIVE); URINE KETONE Negative (NEGATIVE); URINE LEUKOCYTE ESTERASE Negative (NEGATIVE); URINE NITRATE Negative (NEGATIVE); URINE PROTEIN(semi-quant) Negative (NEGATIVE); URINE RBC 0-2 /hpf (0-2); URINE UROBILINOGEN Negative (NEGATIVE)
[2021-02-25 08:09] LABS: ALBUMIN 3.4 gm/dL (3.5-5.0); CALCIUM 9.6 mg/dL (8.4-10.2); CREATININE, serum 1.63 mg/dL (0.72-1.25); MAGNESIUM 1.5 mg/dL (1.6-2.6); PHOSPHOROUS 3.3 mg/dL (2.3-4.7); POTASSIUM 4.7 mmol/L (3.5-4.5)
[2021-02-25 08:13] LABS: COLLECTION METHOD CLEAN CATCH
[2021-02-25 09:20] LABS: BAND 2 % (0-10); LYMPHOCYTE 37 % (20.0-51.0); NEUTROPHILS 41 % (42.0-75.2)
[2021-02-25 09:21] LABS: HYPOCHROMIA 1+; PLATELET ESTIMATE NORMAL (NORMAL)
[2021-02-26 15:00] LABS: PROGRAF 6.2 ng/mL (5.0-15.0)
[2021-02-26 17:39] LABS: CYTOMEGALOVIRUS DNA PCR 247 IU/mL (<=49); CYTOMEGALOVIRUS DNA PCR LOG 2.39 (<=1.69)
== END ==
LOC: COL.LAB 07:14
DX: Z48.22 Encounter for aftercare following kidney transplant (principal); Z79.899 Other long term (current) drug therapy

== ENCOUNTER → 2021-03-08 | Outpatient (CLI) | payer BC ==
[2021-03-08 07:33] LABS: COLLECTION METHOD CLEAN CATCH
[2021-03-08 07:46] LABS: PH 6 (5-8); SQUAMOUS EPITHELIAL 0-2 /hpf (0-10); URINE APPEARANCE Clear (CLEAR/HAZY); URINE BACTERIA None Seen (NONE SEEN); URINE BILIRUBIN Negative (NEGATIVE); URINE BLOOD Negative (NEGATIVE); URINE COLOR Yellow (YELLOW); URINE GLUCOSE Negative (NEGATIVE); URINE KETONE Negative (NEGATIVE); URINE LEUKOCYTE ESTERASE Negative (NEGATIVE); URINE NITRATE Negative (NEGATIVE); URINE PROTEIN(semi-quant) Negative (NEGATIVE); URINE RBC 0-2 /hpf (0-2); URINE UROBILINOGEN Negative (NEGATIVE)
[2021-03-08 07:47] LABS: BASO % 0.5 % (0.0-2.0); EOS % 0.5 % (0.0-4.0); GRAN # 1.4 K/mm3 (1.4-6.5); GRAN % 35.6 % (42.2-75.2); HEMATOCRIT 38.8 % (42.0-52.0); HEMOGLOBIN 12.5 g/dl (13.5-18.0); LYMPH # 1.9 K/mm3 (1.2-3.4); LYMPH % 46.3 % (20.0-51.0); MEAN CELL VOLUME 95 fl (80.0-100.0); MEAN CORPUSCULAR HEMOGLOBIN 31 pg (27-31); MEAN CORPUSCULAR HGB CONC 32 g/dl (33.0-37.0); MEAN PLATELET VOLUME 10.2 fl (7.4-10.4); MONO # 0.7 K/mm3 (0.1-0.6); MONO % 16.4 % (1.7-9.3); PLATELET COUNT 118 K/mm3 (130-400); RED BLOOD COUNT 4.09 M/mm3 (4.20-5.60); REDCELL DISTRIBUTION WIDTH-CV 12.6 % (11.5-14.5)
[2021-03-08 08:02] LABS: ALBUMIN 3.5 gm/dL (3.5-5.0); CALCIUM 9.6 mg/dL (8.4-10.2); CREATININE, serum 1.66 mg/dL (0.72-1.25); MAGNESIUM 1.5 mg/dL (1.6-2.6); PHOSPHOROUS 3.3 mg/dL (2.3-4.7); POTASSIUM 4.4 mmol/L (3.5-4.5)
[2021-03-08 19:32] LABS: PROGRAF 7.7 ng/mL (5.0-15.0)
[2021-03-12 12:51] LABS: CYTOMEGALOVIRUS DNA PCR LOG 2.04 (<=1.69)
== END ==
LOC: COL.LAB 06:49
DX: Z48.22 Encounter for aftercare following kidney transplant (principal); Z79.899 Other long term (current) drug therapy

== ENCOUNTER → 2021-03-25 | Outpatient (CLI) | payer BC ==
[2021-03-25 07:53] LABS: HEMATOCRIT 39.7 % (42.0-52.0); HEMOGLOBIN 12.5 g/dl (13.5-18.0); MEAN CELL VOLUME 97 fl (80.0-100.0); MEAN CORPUSCULAR HEMOGLOBIN 31 pg (27-31); MEAN CORPUSCULAR HGB CONC 32 g/dl (33.0-37.0); MEAN PLATELET VOLUME 9.7 fl (7.4-10.4); PLATELET COUNT 125 K/mm3 (130-400); REDCELL DISTRIBUTION WIDTH-CV 12.6 % (11.5-14.5)
[2021-03-25 08:03] LABS: COLLECTION METHOD CLEAN CATCH
[2021-03-25 08:09] LABS: ALBUMIN 3.8 gm/dL (3.5-5.0); CALCIUM 9.9 mg/dL (8.4-10.2); CREATININE, serum 1.61 mg/dL (0.72-1.25); MAGNESIUM 1.8 mg/dL (1.6-2.6); PHOSPHOROUS 2.5 mg/dL (2.3-4.7); POTASSIUM 4.2 mmol/L (3.5-4.5)
[2021-03-25 08:12] LABS: PH 6 (5-8); SQUAMOUS EPITHELIAL 0-2 /hpf (0-10); URINE APPEARANCE Clear (CLEAR/HAZY); URINE BACTERIA None Seen /hpf (NONE SEEN); URINE BILIRUBIN Negative (NEGATIVE); URINE BLOOD Negative (NEGATIVE); URINE COLOR Yellow (YELLOW); URINE GLUCOSE Negative (NEGATIVE); URINE KETONE Trace (NEGATIVE); URINE LEUKOCYTE ESTERASE Negative (NEGATIVE); URINE NITRATE Negative (NEGATIVE); URINE PROTEIN(semi-quant) Negative (NEGATIVE); URINE RBC 0-2 /hpf (0-2); URINE UROBILINOGEN Negative (NEGATIVE)
[2021-03-25 08:29] LABS: BAND 1 % (0-10); EOSINOPHIL 1 % (0-4); LYMPHOCYTE 78 % (20.0-51.0); NEUTROPHILS 16 % (42.0-75.2); PLATELET ESTIMATE DECREASED (NORMAL)
[2021-03-26 14:39] LABS: PROGRAF 9.6 ng/mL (5.0-15.0)
[2021-04-07 08:40] LABS: CYTOMEGALOVIRUS DNA PCR <50 IU/mL (<=49); CYTOMEGALOVIRUS DNA PCR LOG Detected <1.70 (())
== END ==
LOC: COL.LAB 07:08
DX: Z48.22 Encounter for aftercare following kidney transplant (principal); Z79.899 Other long term (current) drug therapy

== ENCOUNTER → 2021-04-12 | Outpatient (CLI) | payer BC ==
[2021-04-12 08:22] LABS: COLLECTION METHOD CLEAN CATCH
[2021-04-12 08:25] LABS: HEMATOCRIT 39.9 % (42.0-52.0); HEMOGLOBIN 12.6 g/dl (13.5-18.0); MEAN CELL VOLUME 96 fl (80.0-100.0); MEAN CORPUSCULAR HEMOGLOBIN 30 pg (27-31); MEAN CORPUSCULAR HGB CONC 32 g/dl (33.0-37.0); MEAN PLATELET VOLUME 10.3 fl (7.4-10.4); PLATELET COUNT 145 K/mm3 (130-400); RED BLOOD COUNT 4.15 M/mm3 (4.20-5.60); REDCELL DISTRIBUTION WIDTH-CV 12.9 % (11.5-14.5)
[2021-04-12 08:40] LABS: ALBUMIN 3.5 gm/dL (3.5-5.0); CALCIUM 9.7 mg/dL (8.4-10.2); CREATININE, serum 1.61 mg/dL (0.72-1.25); MAGNESIUM 1.6 mg/dL (1.6-2.6); PHOSPHOROUS 2.9 mg/dL (2.3-4.7); POTASSIUM 4.3 mmol/L (3.5-4.5)
[2021-04-12 09:32] LABS: HYPOCHROMIA 2+; LYMPHOCYTE 68 % (20.0-51.0); NEUTROPHILS 20 % (42.0-75.2); PLATELET ESTIMATE NORMAL (NORMAL)
[2021-04-12 09:34] LABS: PH 7 (5-8); SQUAMOUS EPITHELIAL 0-2 /hpf (0-10); URINE APPEARANCE Clear (CLEAR/HAZY); URINE BACTERIA None Seen /hpf (NONE SEEN); URINE BILIRUBIN Negative (NEGATIVE); URINE BLOOD Negative (NEGATIVE); URINE COLOR Straw (YELLOW); URINE GLUCOSE Negative (NEGATIVE); URINE KETONE Negative (NEGATIVE); URINE LEUKOCYTE ESTERASE Negative (NEGATIVE); URINE NITRATE Negative (NEGATIVE); URINE PROTEIN(semi-quant) Negative (NEGATIVE); URINE RBC 0-2 /hpf (0-2); URINE UROBILINOGEN Negative (NEGATIVE)
[2021-04-12 20:54] LABS: PROGRAF 8.3 ng/mL (5.0-15.0)
[2021-04-14 07:25] LABS: CYTOMEGALOVIRUS DNA PCR Not Detected (()); CYTOMEGALOVIRUS DNA PCR LOG Not Detected (())
== END ==
LOC: COL.LAB 07:14
DX: Z48.22 Encounter for aftercare following kidney transplant (principal); Z79.899 Other long term (current) drug therapy

== ENCOUNTER → 2021-04-27 | Outpatient (CLI) | payer BC ==
[2021-04-27 07:59] LABS: COLLECTION METHOD CLEAN CATCH
[2021-04-27 08:04] LABS: HEMATOCRIT 39.2 % (42.0-52.0); HEMOGLOBIN 12.4 g/dl (13.5-18.0); MEAN CELL VOLUME 95 fl (80.0-100.0); MEAN CORPUSCULAR HEMOGLOBIN 30 pg (27-31); MEAN CORPUSCULAR HGB CONC 32 g/dl (33.0-37.0); MEAN PLATELET VOLUME 10.1 fl (7.4-10.4); PLATELET COUNT 117 K/mm3 (130-400); RED BLOOD COUNT 4.13 M/mm3 (4.20-5.60); REDCELL DISTRIBUTION WIDTH-CV 13.3 % (11.5-14.5)
[2021-04-27 08:12] LABS: PH 6 (5-8); SQUAMOUS EPITHELIAL None Seen /hpf (0-10); URINE APPEARANCE Clear (CLEAR/HAZY); URINE BACTERIA None Seen /hpf (NONE SEEN); URINE BILIRUBIN Negative (NEGATIVE); URINE BLOOD Negative (NEGATIVE); URINE COLOR Yellow (YELLOW); URINE GLUCOSE Negative (NEGATIVE); URINE KETONE Negative (NEGATIVE); URINE LEUKOCYTE ESTERASE Negative (NEGATIVE); URINE NITRATE Negative (NEGATIVE); URINE PROTEIN(semi-quant) Negative (NEGATIVE); URINE RBC 0-2 /hpf (0-2); URINE UROBILINOGEN Negative (NEGATIVE)
[2021-04-27 08:29] LABS: ALBUMIN 3.6 gm/dL (3.5-5.0); CALCIUM 9.6 mg/dL (8.4-10.2); MAGNESIUM 1.7 mg/dL (1.6-2.6); PHOSPHOROUS 3.3 mg/dL (2.3-4.7); POTASSIUM 4.3 mmol/L (3.5-4.5)
[2021-04-27 08:40] LABS: CREATININE, serum 1.55 mg/dL (0.72-1.25)
[2021-04-27 09:39] LABS: BAND 1 % (0-10); LYMPHOCYTE 56 % (20.0-51.0); NEUTROPHILS 34 % (42.0-75.2); PLATELET ESTIMATE DECREASED (NORMAL)
[2021-04-30 14:29] LABS: CYTOMEGALOVIRUS DNA PCR Not Detected (()); CYTOMEGALOVIRUS DNA PCR LOG Not Detected (())
== END ==
LOC: COL.LAB 07:19
DX: Z48.22 Encounter for aftercare following kidney transplant (principal); Z79.899 Other long term (current) drug therapy

== ENCOUNTER → 2021-04-27 | Outpatient (CLI) | payer BC ==
[2021-04-27 08:41] LABS: ALBUMIN 3.5 gm/dL (3.5-5.0); BILIRUBIN,TOTAL 0.5 mg/dL (0.2-1.2); CHOLESTEROL RISK RATIO 2.6
[2021-04-27 09:17] LABS: BILIRUBIN,DIRECT 0.2 mg/dL (0.0-0.5)
== END ==
LOC: COL.LAB 07:23
DX: Z79.899 Other long term (current) drug therapy (principal)

== ENCOUNTER → 2021-05-25 | Outpatient (CLI) | payer BC ==
[2021-05-25 07:53] LABS: PH 6 (5-8); SQUAMOUS EPITHELIAL None Seen /hpf (0-10); URINE APPEARANCE Clear (CLEAR/HAZY); URINE BACTERIA None Seen /hpf (NONE SEEN); URINE BILIRUBIN Negative (NEGATIVE); URINE BLOOD 1+ (NEGATIVE); URINE COLOR Yellow (YELLOW); URINE GLUCOSE Negative (NEGATIVE); URINE KETONE Negative (NEGATIVE); URINE LEUKOCYTE ESTERASE Negative (NEGATIVE); URINE NITRATE Negative (NEGATIVE); URINE PROTEIN(semi-quant) Negative (NEGATIVE); URINE RBC 0-2 /hpf (0-2); URINE UROBILINOGEN Negative (NEGATIVE)
[2021-05-25 07:54] LABS: HEMATOCRIT 40.7 % (42.0-52.0); HEMOGLOBIN 13.1 g/dl (13.5-18.0); MEAN CELL VOLUME 94 fl (80.0-100.0); MEAN CORPUSCULAR HEMOGLOBIN 30 pg (27-31); MEAN CORPUSCULAR HGB CONC 32 g/dl (33.0-37.0); MEAN PLATELET VOLUME 9.8 fl (7.4-10.4); PLATELET COUNT 134 K/mm3 (130-400); RED BLOOD COUNT 4.33 M/mm3 (4.20-5.60); REDCELL DISTRIBUTION WIDTH-CV 13.4 % (11.5-14.5)
[2021-05-25 08:00] LABS: ALBUMIN 3.8 gm/dL (3.5-5.0); CALCIUM 9.8 mg/dL (8.4-10.2); CREATININE, serum 1.48 mg/dL (0.72-1.25); MAGNESIUM 1.5 mg/dL (1.6-2.6); POTASSIUM 4.4 mmol/L (3.5-4.5)
[2021-05-25 08:19] LABS: COLLECTION METHOD CLEAN CATCH
[2021-05-25 09:28] LABS: BAND 2 % (0-10); BASOPHIL 1 % (0-2); EOSINOPHIL 1 % (0-4); NEUTROPHILS 22 % (42.0-75.2)
[2021-05-25 09:32] LABS: PLATELET ESTIMATE NORMAL (NORMAL)
[2021-05-25 09:44] LABS: LYMPHOCYTE 69 % (20.0-51.0)
[2021-05-25 22:27] LABS: PROGRAF 10.3 ng/mL (5.0-15.0)
[2021-05-28 14:36] LABS: CYTOMEGALOVIRUS DNA PCR Not Detected (()); CYTOMEGALOVIRUS DNA PCR LOG Not Detected (())
== END ==
LOC: COL.LAB 07:15
DX: Z48.22 Encounter for aftercare following kidney transplant (principal); Z79.899 Other long term (current) drug therapy

== ENCOUNTER → 2021-06-08 | Outpatient (CLI) | payer BC, MEDICAID ==
[2021-06-08 07:38] LABS: BASO % 0.6 % (0.0-2.0); EOS % 0.6 % (0.0-4.0); GRAN % 30.2 % (42.2-75.2); HEMOGLOBIN 12.7 g/dl (13.5-18.0); LYMPH # 1.8 K/mm3 (1.2-3.4); LYMPH % 52.3 % (20.0-51.0); MEAN CELL VOLUME 93 fl (80.0-100.0); MEAN CORPUSCULAR HEMOGLOBIN 30 pg (27-31); MEAN CORPUSCULAR HGB CONC 33 g/dl (33.0-37.0); MEAN PLATELET VOLUME 9.9 fl (7.4-10.4); MONO # 0.5 K/mm3 (0.1-0.6); MONO % 15.1 % (1.7-9.3); PLATELET COUNT 124 K/mm3 (130-400); RED BLOOD COUNT 4.19 M/mm3 (4.20-5.60); REDCELL DISTRIBUTION WIDTH-CV 13.2 % (11.5-14.5)
[2021-06-08 07:44] LABS: PH 6 (5-8); SQUAMOUS EPITHELIAL 0-2 /hpf (0-10); URINE APPEARANCE Clear (CLEAR/HAZY); URINE BACTERIA None Seen /hpf (NONE SEEN); URINE BILIRUBIN Negative (NEGATIVE); URINE BLOOD 1+ (NEGATIVE); URINE COLOR Yellow (YELLOW); URINE GLUCOSE Negative (NEGATIVE); URINE KETONE Negative (NEGATIVE); URINE LEUKOCYTE ESTERASE Negative (NEGATIVE); URINE NITRATE Negative (NEGATIVE); URINE PROTEIN(semi-quant) Negative (NEGATIVE); URINE RBC 0-2 /hpf (0-2); URINE UROBILINOGEN Negative (NEGATIVE)
[2021-06-08 07:51] LABS: ALBUMIN 3.7 gm/dL (3.5-5.0); CALCIUM 9.7 mg/dL (8.4-10.2); CREATININE, serum 1.7 mg/dL (0.72-1.25); MAGNESIUM 1.7 mg/dL (1.6-2.6); PHOSPHOROUS 2.8 mg/dL (2.3-4.7); POTASSIUM 4.3 mmol/L (3.5-4.5)
[2021-06-08 08:08] LABS: COLLECTION METHOD CLEAN CATCH
[2021-06-09 13:42] LABS: PROGRAF 7.7 ng/mL (5.0-15.0)
[2021-06-10 08:00] LABS: CYTOMEGALOVIRUS DNA PCR Not Detected (()); CYTOMEGALOVIRUS DNA PCR LOG Not Detected (())
== END ==
LOC: COL.LAB 07:05
DX: Z48.22 Encounter for aftercare following kidney transplant (principal); Z79.899 Other long term (current) drug therapy

== ENCOUNTER → 2021-06-22 | Outpatient (CLI) | payer BC, MEDICAID ==
[2021-06-22 08:25] LABS: HEMATOCRIT 40.4 % (42.0-52.0); HEMOGLOBIN 13.1 g/dl (13.5-18.0); MEAN CELL VOLUME 94 fl (80.0-100.0); MEAN CORPUSCULAR HEMOGLOBIN 30 pg (27-31); MEAN CORPUSCULAR HGB CONC 32 g/dl (33.0-37.0); MEAN PLATELET VOLUME 10.2 fl (7.4-10.4); PLATELET COUNT 126 K/mm3 (130-400); RED BLOOD COUNT 4.31 M/mm3 (4.20-5.60); REDCELL DISTRIBUTION WIDTH-CV 13.1 % (11.5-14.5)
[2021-06-22 08:26] LABS: MUCOUS Present (NOT PRESENT); PH 7 (5-8); SQUAMOUS EPITHELIAL 0-2 /hpf (0-10); URINE APPEARANCE Clear (CLEAR/HAZY); URINE BACTERIA None Seen /hpf (NONE SEEN); URINE BILIRUBIN Negative (NEGATIVE); URINE BLOOD Negative (NEGATIVE); URINE COLOR Yellow (YELLOW); URINE GLUCOSE Negative (NEGATIVE); URINE KETONE Negative (NEGATIVE); URINE LEUKOCYTE ESTERASE Negative (NEGATIVE); URINE NITRATE Negative (NEGATIVE); URINE PROTEIN(semi-quant) Negative (NEGATIVE); URINE UROBILINOGEN Negative (NEGATIVE)
[2021-06-22 08:43] LABS: ALBUMIN 3.6 gm/dL (3.5-5.0); CREATININE, serum 1.61 mg/dL (0.72-1.25); MAGNESIUM 1.7 mg/dL (1.6-2.6); PHOSPHOROUS 3.4 mg/dL (2.3-4.7); POTASSIUM 4.4 mmol/L (3.5-4.5)
[2021-06-22 08:46] LABS: COLLECTION METHOD CLEAN CATCH
[2021-06-22 08:52] LABS: BAND 1 % (0-10); LYMPHOCYTE 48 % (20.0-51.0); NEUTROPHILS 29 % (42.0-75.2); NUCLEATED RED BLOOD CELL 1 (0-6); PLATELET ESTIMATE DECREASED (NORMAL); POLYCHROMASIA 1+
[2021-06-23 13:44] LABS: PROGRAF 8.1 ng/mL (5.0-15.0)
[2021-06-25 13:57] LABS: CYTOMEGALOVIRUS DNA PCR <50 IU/mL (<=49); CYTOMEGALOVIRUS DNA PCR LOG Detected <1.70 (())
== END ==
LOC: COL.LAB 07:26
DX: Z48.22 Encounter for aftercare following kidney transplant (principal); Z79.899 Other long term (current) drug therapy

== ENCOUNTER → 2021-07-07 | Outpatient (CLI) | payer BC, MEDICAID ==
[2021-07-07 07:43] LABS: ALBUMIN 3.6 gm/dL (3.5-5.0); CALCIUM 10.3 mg/dL (8.4-10.2); CREATININE, serum 1.55 mg/dL (0.72-1.25); MAGNESIUM 1.6 mg/dL (1.6-2.6); PHOSPHOROUS 3.6 mg/dL (2.3-4.7); POTASSIUM 4.3 mmol/L (3.5-4.5)
[2021-07-07 07:46] LABS: PH 7 (5-8); SQUAMOUS EPITHELIAL 0-2 /hpf (0-10); URINE APPEARANCE Clear (CLEAR/HAZY); URINE BACTERIA None Seen /hpf (NONE SEEN); URINE BILIRUBIN Negative (NEGATIVE); URINE BLOOD 1+ (NEGATIVE); URINE COLOR Yellow (YELLOW); URINE GLUCOSE Negative (NEGATIVE); URINE KETONE Negative (NEGATIVE); URINE LEUKOCYTE ESTERASE Negative (NEGATIVE); URINE NITRATE Negative (NEGATIVE); URINE PROTEIN(semi-quant) Negative (NEGATIVE); URINE UROBILINOGEN Negative (NEGATIVE)
[2021-07-07 07:49] LABS: HEMATOCRIT 40.8 % (42.0-52.0); HEMOGLOBIN 12.9 g/dl (13.5-18.0); MEAN CELL VOLUME 94 fl (80.0-100.0); MEAN CORPUSCULAR HEMOGLOBIN 30 pg (27-31); MEAN CORPUSCULAR HGB CONC 32 g/dl (33.0-37.0); MEAN PLATELET VOLUME 10.4 fl (7.4-10.4); PLATELET COUNT 116 K/mm3 (130-400); RED BLOOD COUNT 4.33 M/mm3 (4.20-5.60); REDCELL DISTRIBUTION WIDTH-CV 13.2 % (11.5-14.5)
[2021-07-07 07:55] LABS: COLLECTION METHOD CLEAN CATCH
[2021-07-07 08:02] LABS: BAND 2 % (0-10); BASOPHIL 1 % (0-2); EOSINOPHIL 1 % (0-4); LYMPHOCYTE 39 % (20.0-51.0); NEUTROPHILS 40 % (42.0-75.2)
[2021-07-07 08:03] LABS: HYPOCHROMIA 1+; PLATELET ESTIMATE DECREASED (NORMAL)
[2021-07-07 23:13] LABS: PROGRAF 4.8 ng/mL (5.0-15.0)
[2021-07-09 13:42] LABS: CYTOMEGALOVIRUS DNA PCR LOG 1.83 (<=1.69)
== END ==
LOC: COL.LAB 07:01
DX: Z79.899 Other long term (current) drug therapy (principal); Z48.22 Encounter for aftercare following kidney transplant

== ENCOUNTER → 2021-07-21 | Outpatient (CLI) | payer BC, MEDICAID ==
[2021-07-21 07:20] LABS: HEMATOCRIT 41.6 % (42.0-52.0); HEMOGLOBIN 13.1 g/dl (13.5-18.0); MEAN CELL VOLUME 95 fl (80.0-100.0); MEAN CORPUSCULAR HEMOGLOBIN 30 pg (27-31); MEAN CORPUSCULAR HGB CONC 32 g/dl (33.0-37.0); MEAN PLATELET VOLUME 9.8 fl (7.4-10.4); PLATELET COUNT 127 K/mm3 (130-400); REDCELL DISTRIBUTION WIDTH-CV 13.3 % (11.5-14.5)
[2021-07-21 07:22] LABS: MUCOUS Present (NOT PRESENT); PH 7 (5-8); SQUAMOUS EPITHELIAL None Seen /hpf (0-10); URINE APPEARANCE Clear (CLEAR/HAZY); URINE BACTERIA None Seen /hpf (NONE SEEN); URINE BILIRUBIN Negative (NEGATIVE); URINE BLOOD 1+ (NEGATIVE); URINE COLOR Yellow (YELLOW); URINE GLUCOSE Negative (NEGATIVE); URINE KETONE Negative (NEGATIVE); URINE LEUKOCYTE ESTERASE Negative (NEGATIVE); URINE NITRATE Negative (NEGATIVE); URINE PROTEIN(semi-quant) Negative (NEGATIVE); URINE UROBILINOGEN Negative (NEGATIVE)
[2021-07-21 07:29] LABS: COLLECTION METHOD CLEAN CATCH
[2021-07-21 07:37] LABS: ALBUMIN 3.7 gm/dL (3.5-5.0); CALCIUM 9.9 mg/dL (8.4-10.2); CREATININE, serum 1.58 mg/dL (0.72-1.25); MAGNESIUM 1.7 mg/dL (1.6-2.6); PHOSPHOROUS 3.3 mg/dL (2.3-4.7); POTASSIUM 4.3 mmol/L (3.5-4.5)
[2021-07-21 07:39] LABS: BAND 3 % (0-10); LYMPHOCYTE 37 % (20.0-51.0); MYELOCYTE 1 % (0-0); NEUTROPHILS 36 % (42.0-75.2); PLATELET ESTIMATE DECREASED (NORMAL)
[2021-07-21 07:40] LABS: MICROCYTOSIS 1+
[2021-07-22 12:07] LABS: PROGRAF 10.1 ng/mL (5.0-15.0)
[2021-07-23 13:00] LABS: CYTOMEGALOVIRUS DNA PCR LOG 2.35 (<=1.69)
== END ==
LOC: COL.LAB 06:52
DX: Z48.22 Encounter for aftercare following kidney transplant (principal); Z79.899 Other long term (current) drug therapy

== ENCOUNTER → 2021-08-04 | Outpatient (CLI) | payer BC, MEDICAID ==
[2021-08-04 07:09] LABS: COLLECTION METHOD CLEAN CATCH
[2021-08-04 07:19] LABS: BASO % 0.2 % (0.0-2.0); EOS % 0.5 % (0.0-4.0); GRAN # 1.3 K/mm3 (1.4-6.5); GRAN % 32.5 % (42.2-75.2); HEMATOCRIT 41.2 % (42.0-52.0); LYMPH # 2.4 K/mm3 (1.2-3.4); LYMPH % 58.7 % (20.0-51.0); MEAN CELL VOLUME 96 fl (80.0-100.0); MEAN CORPUSCULAR HEMOGLOBIN 30 pg (27-31); MEAN CORPUSCULAR HGB CONC 32 g/dl (33.0-37.0); MEAN PLATELET VOLUME 9.9 fl (7.4-10.4); MONO # 0.3 K/mm3 (0.1-0.6); MONO % 7.9 % (1.7-9.3); PLATELET COUNT 129 K/mm3 (130-400); RED BLOOD COUNT 4.29 M/mm3 (4.20-5.60); REDCELL DISTRIBUTION WIDTH-CV 13.3 % (11.5-14.5)
[2021-08-04 07:20] LABS: MUCOUS Present (NOT PRESENT); PH 6 (5-8); SQUAMOUS EPITHELIAL None Seen /hpf (0-10); URINE APPEARANCE Clear (CLEAR/HAZY); URINE BACTERIA None Seen /hpf (NONE SEEN); URINE BILIRUBIN Negative (NEGATIVE); URINE BLOOD 1+ (NEGATIVE); URINE COLOR Yellow (YELLOW); URINE GLUCOSE Negative (NEGATIVE); URINE KETONE Negative (NEGATIVE); URINE LEUKOCYTE ESTERASE Negative (NEGATIVE); URINE NITRATE Negative (NEGATIVE); URINE PROTEIN(semi-quant) Negative (NEGATIVE); URINE UROBILINOGEN Negative (NEGATIVE)
[2021-08-04 07:35] LABS: ALBUMIN 3.6 gm/dL (3.5-5.0); CALCIUM 9.9 mg/dL (8.4-10.2); CREATININE, serum 1.5 mg/dL (0.72-1.25); MAGNESIUM 1.6 mg/dL (1.6-2.6); PHOSPHOROUS 3.2 mg/dL (2.3-4.7); POTASSIUM 4.3 mmol/L (3.5-4.5)
[2021-08-05 13:48] LABS: PROGRAF 7.9 ng/mL (5.0-15.0)
[2021-08-06 12:57] LABS: CYTOMEGALOVIRUS DNA PCR Detected <50 IU/mL (()); CYTOMEGALOVIRUS DNA PCR LOG Detected <1.70 (())
== END ==
LOC: COL.LAB 06:44
DX: Z48.22 Encounter for aftercare following kidney transplant (principal); Z79.899 Other long term (current) drug therapy

== ENCOUNTER → 2021-08-18 | Outpatient (CLI) | payer BC, MEDICAID ==
[2021-08-18 07:32] LABS: HEMATOCRIT 42.5 % (42.0-52.0); HEMOGLOBIN 13.2 g/dl (13.5-18.0); MEAN CELL VOLUME 99 fl (80.0-100.0); MEAN CORPUSCULAR HEMOGLOBIN 31 pg (27-31); MEAN CORPUSCULAR HGB CONC 31 g/dl (33.0-37.0); MEAN PLATELET VOLUME 9.6 fl (7.4-10.4); PLATELET COUNT 126 K/mm3 (130-400); REDCELL DISTRIBUTION WIDTH-CV 13.9 % (11.5-14.5)
[2021-08-18 07:36] LABS: PH 6 (5-8); SQUAMOUS EPITHELIAL None Seen /hpf (0-10); URINE APPEARANCE Clear (CLEAR/HAZY); URINE BACTERIA None Seen /hpf (NONE SEEN); URINE BILIRUBIN Negative (NEGATIVE); URINE BLOOD 2+ (NEGATIVE); URINE COLOR Yellow (YELLOW); URINE GLUCOSE Negative (NEGATIVE); URINE KETONE Negative (NEGATIVE); URINE LEUKOCYTE ESTERASE Negative (NEGATIVE); URINE NITRATE Negative (NEGATIVE); URINE PROTEIN(semi-quant) Negative (NEGATIVE); URINE UROBILINOGEN Negative (NEGATIVE)
[2021-08-18 07:40] LABS: COLLECTION METHOD CLEAN CATCH
[2021-08-18 07:51] LABS: EOSINOPHIL 1 % (0-4); LYMPHOCYTE 65 % (20.0-51.0); NEUTROPHILS 28 % (42.0-75.2)
[2021-08-18 07:52] LABS: HYPOCHROMIA 2+; PLATELET ESTIMATE DECREASED (NORMAL)
[2021-08-18 07:54] LABS: ALBUMIN 3.4 gm/dL (3.5-5.0); CALCIUM 9.7 mg/dL (8.4-10.2); CREATININE, serum 1.62 mg/dL (0.72-1.25); PHOSPHOROUS 3.2 mg/dL (2.3-4.7); POTASSIUM 4.3 mmol/L (3.5-4.5)
[2021-08-18 18:07] LABS: PROGRAF 8.1 ng/mL (5.0-15.0)
[2021-08-20 17:03] LABS: CYTOMEGALOVIRUS DNA PCR Not Detected (()); CYTOMEGALOVIRUS DNA PCR LOG Not Detected (())
== END ==
LOC: COL.LAB 07:05
DX: Z48.22 Encounter for aftercare following kidney transplant (principal); Z79.899 Other long term (current) drug therapy

== ENCOUNTER → 2021-09-01 | Outpatient (CLI) | payer BC, MEDICAID ==
[2021-09-01 08:41] LABS: HEMATOCRIT 43.3 % (42.0-52.0); HEMOGLOBIN 13.9 g/dl (13.5-18.0); MEAN CELL VOLUME 95 fl (80.0-100.0); MEAN CORPUSCULAR HEMOGLOBIN 31 pg (27-31); MEAN CORPUSCULAR HGB CONC 32 g/dl (33.0-37.0); MEAN PLATELET VOLUME 9.6 fl (7.4-10.4); PLATELET COUNT 147 K/mm3 (130-400); RED BLOOD COUNT 4.55 M/mm3 (4.20-5.60); REDCELL DISTRIBUTION WIDTH-CV 13.9 % (11.5-14.5)
[2021-09-01 08:59] LABS: MUCOUS Present (NOT PRESENT); PH 6 (5-8); SQUAMOUS EPITHELIAL None Seen /hpf (0-10); URINE APPEARANCE Clear (CLEAR/HAZY); URINE BACTERIA None Seen /hpf (NONE SEEN); URINE BILIRUBIN Negative (NEGATIVE); URINE BLOOD Negative (NEGATIVE); URINE COLOR Yellow (YELLOW); URINE GLUCOSE Negative (NEGATIVE); URINE KETONE Negative (NEGATIVE); URINE LEUKOCYTE ESTERASE Negative (NEGATIVE); URINE NITRATE Negative (NEGATIVE); URINE PROTEIN(semi-quant) Negative (NEGATIVE); URINE UROBILINOGEN Negative (NEGATIVE)
[2021-09-01 09:05] LABS: COLLECTION METHOD CLEAN CATCH
[2021-09-01 09:24] LABS: BAND 3 % (0-10); EOSINOPHIL 1 % (0-4); LYMPHOCYTE 70 % (20.0-51.0); NEUTROPHILS 18 % (42.0-75.2); PLATELET ESTIMATE NORMAL (NORMAL)
[2021-09-01 10:09] LABS: ALBUMIN 3.6 gm/dL (3.5-5.0); CALCIUM 10.2 mg/dL (8.4-10.2); CREATININE, serum 1.56 mg/dL (0.72-1.25); MAGNESIUM 1.8 mg/dL (1.6-2.6); PHOSPHOROUS 2.8 mg/dL (2.3-4.7); POTASSIUM 4.4 mmol/L (3.5-4.5)
[2021-09-02 13:59] LABS: PROGRAF 5.3 ng/mL (5.0-15.0)
[2021-09-03 13:11] LABS: CYTOMEGALOVIRUS DNA PCR Not Detected (()); CYTOMEGALOVIRUS DNA PCR LOG Not Detected (())
== END ==
LOC: COL.LAB 08:03
PROVIDERS: Internal Medicine Nephrology
DX: Z48.22 Encounter for aftercare following kidney transplant (principal); Z79.899 Other long term (current) drug therapy

== ENCOUNTER → 2021-09-15 | Outpatient (CLI) | payer BC, MEDICAID ==
[2021-09-15 07:43] LABS: HEMATOCRIT 42.7 % (42.0-52.0); HEMOGLOBIN 13.8 g/dl (13.5-18.0); MEAN CELL VOLUME 96 fl (80.0-100.0); MEAN CORPUSCULAR HEMOGLOBIN 31 pg (27-31); MEAN CORPUSCULAR HGB CONC 32 g/dl (33.0-37.0); MEAN PLATELET VOLUME 9.4 fl (7.4-10.4); PLATELET COUNT 107 K/mm3 (130-400); RED BLOOD COUNT 4.46 M/mm3 (4.20-5.60); REDCELL DISTRIBUTION WIDTH-CV 14.5 % (11.5-14.5)
[2021-09-15 07:45] LABS: PH 7 (5-8); SQUAMOUS EPITHELIAL None Seen /hpf (0-10); URINE APPEARANCE Clear (CLEAR/HAZY); URINE BACTERIA None Seen /hpf (NONE SEEN); URINE BILIRUBIN Negative (NEGATIVE); URINE BLOOD Negative (NEGATIVE); URINE COLOR Straw (YELLOW); URINE GLUCOSE Negative (NEGATIVE); URINE KETONE Negative (NEGATIVE); URINE LEUKOCYTE ESTERASE Negative (NEGATIVE); URINE NITRATE Negative (NEGATIVE); URINE PROTEIN(semi-quant) Negative (NEGATIVE); URINE UROBILINOGEN Negative (NEGATIVE)
[2021-09-15 08:09] LABS: ALBUMIN 3.6 gm/dL (3.5-5.0); CREATININE, serum 1.38 mg/dL (0.72-1.25); MAGNESIUM 1.7 mg/dL (1.6-2.6); PHOSPHOROUS 2.8 mg/dL (2.3-4.7); POTASSIUM 4.5 mmol/L (3.5-4.5)
[2021-09-15 08:16] LABS: BAND 1 % (0-10); EOSINOPHIL 2 % (0-4); LYMPHOCYTE 64 % (20.0-51.0); NEUTROPHILS 25 % (42.0-75.2); PLATELET ESTIMATE DECREASED (NORMAL)
[2021-09-15 08:21] LABS: COLLECTION METHOD CLEAN CATCH
[2021-09-16 13:14] LABS: PROGRAF 5.5 ng/mL (5.0-15.0)
[2021-09-17 12:43] LABS: CYTOMEGALOVIRUS DNA PCR Not Detected (()); CYTOMEGALOVIRUS DNA PCR LOG Not Detected (())
== END ==
LOC: COL.LAB 07:12
PROVIDERS: Internal Medicine Nephrology
DX: Z48.22 Encounter for aftercare following kidney transplant (principal); Z94.0 Kidney transplant status; Z79.899 Other long term (current) drug therapy

== ENCOUNTER → 2021-09-29 | Outpatient (CLI) | payer BC, MEDICAID ==
[2021-09-29 07:55] LABS: COLLECTION METHOD CLEAN CATCH
[2021-09-29 08:12] LABS: HEMATOCRIT 41.1 % (42.0-52.0); HEMOGLOBIN 13.2 g/dl (13.5-18.0); MEAN CELL VOLUME 95 fl (80.0-100.0); MEAN CORPUSCULAR HEMOGLOBIN 31 pg (27-31); MEAN CORPUSCULAR HGB CONC 32 g/dl (33.0-37.0); MEAN PLATELET VOLUME 12.2 fl (7.4-10.4); PLATELET COUNT 84 K/mm3 (130-400); RED BLOOD COUNT 4.32 M/mm3 (4.20-5.60); REDCELL DISTRIBUTION WIDTH-CV 14.4 % (11.5-14.5)
[2021-09-29 09:11] LABS: ALBUMIN 3.6 gm/dL (3.5-5.0); CALCIUM 9.9 mg/dL (8.4-10.2); CREATININE, serum 1.4 mg/dL (0.72-1.25); MAGNESIUM 1.5 mg/dL (1.6-2.6); PHOSPHOROUS 2.8 mg/dL (2.3-4.7); POTASSIUM 4.2 mmol/L (3.5-4.5)
[2021-09-29 12:29] LABS: BAND 3 % (0-10); LYMPHOCYTE 65 % (20.0-51.0); NEUTROPHILS 7 % (42.0-75.2)
[2021-09-29 12:30] LABS: EOSINOPHIL 1 % (0-4); PLATELET ESTIMATE DECREASED (NORMAL)
[2021-09-29 12:42] LABS: PH 7 (5-8); SQUAMOUS EPITHELIAL 0-2 /hpf (0-10); URINE APPEARANCE Clear (CLEAR/HAZY); URINE BACTERIA None Seen /hpf (NONE SEEN); URINE BILIRUBIN Negative (NEGATIVE); URINE BLOOD Negative (NEGATIVE); URINE COLOR Yellow (YELLOW); URINE GLUCOSE Negative (NEGATIVE); URINE KETONE Negative (NEGATIVE); URINE LEUKOCYTE ESTERASE Negative (NEGATIVE); URINE NITRATE Negative (NEGATIVE); URINE PROTEIN(semi-quant) Negative (NEGATIVE); URINE UROBILINOGEN Negative (NEGATIVE)
[2021-09-29 23:17] LABS: PROGRAF 5.8 ng/mL (5.0-15.0)
== END ==
LOC: COL.LAB 06:51
PROVIDERS: Internal Medicine Nephrology
DX: Z48.22 Encounter for aftercare following kidney transplant (principal); Z79.899 Other long term (current) drug therapy; Z94.0 Kidney transplant status

== ENCOUNTER → 2021-10-13 | Outpatient (CLI) | payer BC, MEDICAID ==
[2021-10-13 08:56] LABS: HEMATOCRIT 42.2 % (42.0-52.0); HEMOGLOBIN 13.5 g/dl (13.5-18.0); MEAN CELL VOLUME 96 fl (80.0-100.0); MEAN CORPUSCULAR HEMOGLOBIN 31 pg (27-31); MEAN CORPUSCULAR HGB CONC 32 g/dl (33.0-37.0); MEAN PLATELET VOLUME 9.9 fl (7.4-10.4); PLATELET COUNT 119 K/mm3 (130-400); RED BLOOD COUNT 4.38 M/mm3 (4.20-5.60)
[2021-10-13 08:58] LABS: MUCOUS Present (NOT PRESENT); PH 7 (5-8); SQUAMOUS EPITHELIAL None Seen /hpf (0-10); URINE APPEARANCE Clear (CLEAR/HAZY); URINE BACTERIA None Seen /hpf (NONE SEEN); URINE BLOOD 1+ (NEGATIVE); URINE COLOR Straw (YELLOW); URINE GLUCOSE Negative (NEGATIVE); URINE KETONE Negative (NEGATIVE); URINE NITRATE Negative (NEGATIVE); URINE PROTEIN(semi-quant) Negative (NEGATIVE); URINE RBC 0-2 /hpf (0-2); URINE UROBILINOGEN Negative (NEGATIVE)
[2021-10-13 09:12] LABS: COLLECTION METHOD CLEAN CATCH
[2021-10-13 09:13] LABS: ALBUMIN 3.4 gm/dL (3.5-5.0); CALCIUM 9.7 mg/dL (8.4-10.2); CREATININE, serum 1.3 mg/dL (0.72-1.25); MAGNESIUM 1.7 mg/dL (1.6-2.6); PHOSPHOROUS 2.9 mg/dL (2.3-4.7); POTASSIUM 4.2 mmol/L (3.5-4.5)
[2021-10-13 10:07] LABS: LYMPHOCYTE 55 % (20.0-51.0); NEUTROPHILS 30 % (42.0-75.2)
[2021-10-13 10:08] LABS: PLATELET ESTIMATE DECREASED (NORMAL)
[2021-10-14 14:12] LABS: PROGRAF 5.6 ng/mL (5.0-15.0)
[2021-10-15 13:50] LABS: CYTOMEGALOVIRUS DNA PCR Not Detected (()); CYTOMEGALOVIRUS DNA PCR LOG Not Detected (())
== END ==
LOC: COL.LAB 08:14
DX: Z48.22 Encounter for aftercare following kidney transplant (principal); Z94.0 Kidney transplant status; Z79.899 Other long term (current) drug therapy

== ENCOUNTER → 2021-10-27 | Outpatient (CLI) | payer BC, MEDICAID ==
[2021-10-27 07:57] LABS: SQUAMOUS EPITHELIAL None Seen /hpf (0-10); URINE BACTERIA None Seen /hpf (NONE SEEN)
[2021-10-27 07:58] LABS: COLLECTION METHOD CLEAN CATCH; PH 7 (5-8); URINE APPEARANCE Clear (CLEAR/HAZY); URINE BLOOD 1+ (NEGATIVE); URINE COLOR Yellow (YELLOW); URINE GLUCOSE Negative (NEGATIVE); URINE KETONE Negative (NEGATIVE); URINE NITRATE Negative (NEGATIVE); URINE PROTEIN(semi-quant) Negative (NEGATIVE); URINE UROBILINOGEN Negative (NEGATIVE)
[2021-10-27 08:06] LABS: BASO % 0.6 % (0.0-2.0); EOS # 0.2 K/mm3 (0.0-0.7); EOS % 3.1 % (0.0-4.0); GRAN # 2.7 K/mm3 (1.4-6.5); HEMATOCRIT 42.1 % (42.0-52.0); HEMOGLOBIN 13.4 g/dl (13.5-18.0); LYMPH # 2.8 K/mm3 (1.2-3.4); LYMPH % 39.9 % (20.0-51.0); MEAN CELL VOLUME 97 fl (80.0-100.0); MEAN CORPUSCULAR HEMOGLOBIN 31 pg (27-31); MEAN CORPUSCULAR HGB CONC 32 g/dl (33.0-37.0); MEAN PLATELET VOLUME 9.4 fl (7.4-10.4); MONO # 1.3 K/mm3 (0.1-0.6); MONO % 17.8 % (1.7-9.3); PLATELET COUNT 131 K/mm3 (130-400); RED BLOOD COUNT 4.35 M/mm3 (4.20-5.60); REDCELL DISTRIBUTION WIDTH-CV 13.6 % (11.5-14.5)
[2021-10-27 08:08] LABS: ALBUMIN 3.5 gm/dL (3.5-5.0); CALCIUM 10.2 mg/dL (8.4-10.2); CREATININE, serum 1.37 mg/dL (0.72-1.25); MAGNESIUM 1.7 mg/dL (1.6-2.6); PHOSPHOROUS 3.1 mg/dL (2.3-4.7); POTASSIUM 4.3 mmol/L (3.5-4.5)
[2021-10-27 22:49] LABS: PROGRAF 8.5 ng/mL (5.0-15.0)
[2021-10-29 13:02] LABS: CYTOMEGALOVIRUS DNA PCR Detected <50 IU/mL (()); CYTOMEGALOVIRUS DNA PCR LOG Detected <1.70 (())
== END ==
LOC: COL.LAB 07:20
DX: Z48.22 Encounter for aftercare following kidney transplant (principal); Z79.899 Other long term (current) drug therapy

== ENCOUNTER → 2021-11-17 | Outpatient (CLI) | payer BC, MEDICAID ==
[2021-11-17 08:02] LABS: BASO % 0.5 % (0.0-2.0); EOS # 0.2 K/mm3 (0.0-0.7); EOS % 3.6 % (0.0-4.0); HEMATOCRIT 42.6 % (42.0-52.0); HEMOGLOBIN 13.6 g/dl (13.5-18.0); LYMPH # 2.6 K/mm3 (1.2-3.4); LYMPH % 44.4 % (20.0-51.0); MEAN CELL VOLUME 95 fl (80.0-100.0); MEAN CORPUSCULAR HEMOGLOBIN 30 pg (27-31); MEAN CORPUSCULAR HGB CONC 32 g/dl (33.0-37.0); MEAN PLATELET VOLUME 9.7 fl (7.4-10.4); PLATELET COUNT 129 K/mm3 (130-400); RED BLOOD COUNT 4.47 M/mm3 (4.20-5.60); REDCELL DISTRIBUTION WIDTH-CV 13.2 % (11.5-14.5)
[2021-11-17 08:10] LABS: ALBUMIN 3.3 gm/dL (3.5-5.0); CREATININE, serum 1.38 mg/dL (0.72-1.25); MAGNESIUM 1.9 mg/dL (1.6-2.6); PHOSPHOROUS 2.4 mg/dL (2.3-4.7); POTASSIUM 4.3 mmol/L (3.5-4.5)
[2021-11-17 08:11] LABS: SQUAMOUS EPITHELIAL None Seen /hpf (0-10); URINE BACTERIA Rare /hpf (NONE SEEN)
[2021-11-17 08:17] LABS: COLLECTION METHOD CLEAN CATCH; PH 7.5 (5.0-8.5); URINE APPEARANCE Clear (CLEAR/HAZY); URINE COLOR Yellow (YELLOW); URINE PROTEIN(semi-quant) Negative (NEGATIVE)
[2021-11-17 08:18] LABS: URINE BLOOD TRACE-INTACT (NEGATIVE); URINE GLUCOSE Negative (NEGATIVE); URINE KETONE Negative (NEGATIVE); URINE NITRATE Negative (NEGATIVE); URINE UROBILINOGEN 0.2 E.U/dL (0.2-1.0)
[2021-11-18 11:21] LABS: PROGRAF 5.5 ng/mL (5.0-15.0)
[2021-11-22 14:15] LABS: CYTOMEGALOVIRUS DNA PCR <50 IU/mL (<=49); CYTOMEGALOVIRUS DNA PCR LOG Detected <1.70 (())
== END ==
LOC: COL.LAB 07:14
PROVIDERS: Internal Medicine Nephrology
DX: Z48.22 Encounter for aftercare following kidney transplant (principal); Z94.0 Kidney transplant status; Z79.899 Other long term (current) drug therapy

== ENCOUNTER → 2021-12-01 | Outpatient (CLI) | payer BC, MEDICAID ==
[2021-12-01 07:30] LABS: BASO % 0.5 % (0.0-2.0); EOS # 0.2 K/mm3 (0.0-0.7); EOS % 2.5 % (0.0-4.0); GRAN # 1.9 K/mm3 (1.4-6.5); GRAN % 29.3 % (42.2-75.2); HEMATOCRIT 42.8 % (42.0-52.0); HEMOGLOBIN 13.8 g/dl (13.5-18.0); LYMPH # 3.2 K/mm3 (1.2-3.4); LYMPH % 50.2 % (20.0-51.0); MEAN CELL VOLUME 95 fl (80.0-100.0); MEAN CORPUSCULAR HEMOGLOBIN 31 pg (27-31); MEAN CORPUSCULAR HGB CONC 32 g/dl (33.0-37.0); MEAN PLATELET VOLUME 9.8 fl (7.4-10.4); MONO # 1.1 K/mm3 (0.1-0.6); PLATELET COUNT 133 K/mm3 (130-400); RED BLOOD COUNT 4.51 M/mm3 (4.20-5.60); REDCELL DISTRIBUTION WIDTH-CV 13.2 % (11.5-14.5)
[2021-12-01 07:44] LABS: ALBUMIN 3.4 gm/dL (3.5-5.0); CALCIUM 10.1 mg/dL (8.4-10.2); CREATININE, serum 1.39 mg/dL (0.72-1.25); MAGNESIUM 1.8 mg/dL (1.6-2.6); POTASSIUM 4.6 mmol/L (3.5-4.5)
[2021-12-01 08:10] LABS: SQUAMOUS EPITHELIAL None Seen /hpf (0-10); URINE BACTERIA None Seen /hpf (NONE SEEN)
[2021-12-01 08:12] LABS: PH 7.5 (5-8); URINE APPEARANCE Clear (CLEAR/HAZY); URINE BLOOD TRACE-INTACT (NEGATIVE); URINE COLOR Yellow (YELLOW); URINE GLUCOSE Negative (NEGATIVE); URINE KETONE Negative (NEGATIVE); URINE NITRATE Negative (NEGATIVE); URINE PROTEIN(semi-quant) Negative (NEGATIVE); URINE UROBILINOGEN 0.2 (NEGATIVE)
[2021-12-01 08:25] LABS: COLLECTION METHOD CLEAN CATCH
[2021-12-02 15:06] LABS: PROGRAF 9.7 ng/mL (5.0-15.0)
[2021-12-03 14:16] LABS: CYTOMEGALOVIRUS DNA PCR <50 IU/mL (<=49); CYTOMEGALOVIRUS DNA PCR LOG Detected <1.70 (())
== END ==
LOC: COL.LAB 06:54
PROVIDERS: Internal Medicine Nephrology
DX: Z48.22 Encounter for aftercare following kidney transplant (principal); Z94.0 Kidney transplant status; Z79.899 Other long term (current) drug therapy

== ENCOUNTER → 2021-12-14 | Outpatient (CLI) | payer BC, MEDICAID ==
[2021-12-14 07:42] LABS: BASO % 0.3 % (0.0-2.0); EOS # 0.1 K/mm3 (0.0-0.7); EOS % 1.7 % (0.0-4.0); GRAN # 2.1 K/mm3 (1.4-6.5); HEMATOCRIT 41.7 % (42.0-52.0); HEMOGLOBIN 13.2 g/dl (13.5-18.0); LYMPH # 2.6 K/mm3 (1.2-3.4); LYMPH % 42.7 % (20.0-51.0); MEAN CELL VOLUME 96 fl (80.0-100.0); MEAN CORPUSCULAR HEMOGLOBIN 30 pg (27-31); MEAN CORPUSCULAR HGB CONC 32 g/dl (33.0-37.0); MEAN PLATELET VOLUME 10.3 fl (7.4-10.4); MONO # 1.2 K/mm3 (0.1-0.6); MONO % 19.6 % (1.7-9.3); PLATELET COUNT 118 K/mm3 (130-400); RED BLOOD COUNT 4.35 M/mm3 (4.20-5.60); REDCELL DISTRIBUTION WIDTH-CV 12.9 % (11.5-14.5)
[2021-12-14 07:45] LABS: SQUAMOUS EPITHELIAL 0-2 /hpf (0-10); URINE BACTERIA None Seen /hpf (NONE SEEN)
[2021-12-14 07:48] LABS: URINE APPEARANCE Clear (CLEAR/HAZY); URINE BLOOD TRACE-INTACT (NEGATIVE); URINE COLOR Yellow (YELLOW); URINE GLUCOSE Negative (NEGATIVE); URINE KETONE Negative (NEGATIVE); URINE NITRATE Negative (NEGATIVE); URINE PROTEIN(semi-quant) Negative (NEGATIVE); URINE UROBILINOGEN 0.2 (NEGATIVE)
[2021-12-14 08:01] LABS: ALBUMIN 3.4 gm/dL (3.5-5.0); CALCIUM 9.6 mg/dL (8.4-10.2); CREATININE, serum 1.33 mg/dL (0.72-1.25); MAGNESIUM 1.5 mg/dL (1.6-2.6); PHOSPHOROUS 3.3 mg/dL (2.3-4.7); POTASSIUM 4.1 mmol/L (3.5-4.5)
[2021-12-14 08:34] LABS: COLLECTION METHOD CLEAN CATCH
[2021-12-17 13:55] LABS: CYTOMEGALOVIRUS DNA PCR Detected <50 IU/mL (()); CYTOMEGALOVIRUS DNA PCR LOG Detected <1.70 (())
== END ==
LOC: COL.LAB 06:50
PROVIDERS: Internal Medicine Nephrology
DX: Z48.22 Encounter for aftercare following kidney transplant (principal); Z94.0 Kidney transplant status; Z79.899 Other long term (current) drug therapy

== ENCOUNTER → 2022-01-05 | Outpatient (CLI) | payer BC, MEDICAID ==
[2022-01-05 07:44] LABS: COLLECTION METHOD CLEAN CATCH
[2022-01-05 08:00] LABS: HEMATOCRIT 43.2 % (42.0-52.0); HEMOGLOBIN 13.7 g/dl (13.5-18.0); MEAN CELL VOLUME 96 fl (80.0-100.0); MEAN CORPUSCULAR HEMOGLOBIN 31 pg (27-31); MEAN CORPUSCULAR HGB CONC 32 g/dl (33.0-37.0); MEAN PLATELET VOLUME 9.8 fl (7.4-10.4); PLATELET COUNT 138 K/mm3 (130-400); RED BLOOD COUNT 4.49 M/mm3 (4.20-5.60)
[2022-01-05 08:10] LABS: AMORPHOUS CRYSTAL Present (NOT PRESENT); MUCOUS Present (NOT PRESENT); SQUAMOUS EPITHELIAL None Seen /hpf (0-10); URINE BACTERIA None Seen /hpf (NONE SEEN)
[2022-01-05 08:13] LABS: URINE COLOR Yellow (YELLOW)
[2022-01-05 08:14] LABS: PH 7.5 (5.0-8.5); URINE APPEARANCE Cloudy (CLEAR/HAZY); URINE BLOOD Negative (NEGATIVE); URINE GLUCOSE Negative (NEGATIVE); URINE KETONE Negative (NEGATIVE); URINE NITRATE Negative (NEGATIVE); URINE PROTEIN(semi-quant) Negative (NEGATIVE); URINE UROBILINOGEN 0.2 E.U/dL (0.2-1.0)
[2022-01-05 08:24] LABS: ALBUMIN 3.3 gm/dL (3.5-5.0); CALCIUM 9.8 mg/dL (8.4-10.2); CREATININE, serum 1.48 mg/dL (0.72-1.25); MAGNESIUM 1.7 mg/dL (1.6-2.6); PHOSPHOROUS 2.7 mg/dL (2.3-4.7); POTASSIUM 4.5 mmol/L (3.5-4.5)
[2022-01-05 08:37] LABS: BAND 5 % (0-10); BASOPHIL 1 % (0-2); LYMPHOCYTE 49 % (20.0-51.0); NEUTROPHILS 29 % (42.0-75.2)
[2022-01-05 08:38] LABS: HYPOCHROMIA 1+; PLATELET ESTIMATE NORMAL (NORMAL)
[2022-01-05 20:38] LABS: PROGRAF 6.1 ng/mL (5.0-15.0)
[2022-01-07 14:10] LABS: CYTOMEGALOVIRUS DNA PCR Detected <50 IU/mL (()); CYTOMEGALOVIRUS DNA PCR LOG Detected <1.70 (())
== END ==
LOC: COL.LAB 07:18
PROVIDERS: Internal Medicine Nephrology
DX: Z48.22 Encounter for aftercare following kidney transplant (principal); Z94.0 Kidney transplant status; Z79.899 Other long term (current) drug therapy

== ENCOUNTER → 2022-06-02 | Outpatient (CLI) | payer BC, MEDICAID ==
[2022-06-02 07:33] LABS: BASO % 0.3 % (0.0-2.0); EOS % 0.5 % (0.0-4.0); GRAN # 1.7 K/mm3 (1.4-6.5); GRAN % 27.6 % (42.2-75.2); HEMATOCRIT 44.1 % (42.0-52.0); HEMOGLOBIN 14.2 g/dl (13.5-18.0); LYMPH # 3.5 K/mm3 (1.2-3.4); LYMPH % 56.1 % (20.0-51.0); MEAN CELL VOLUME 94 fl (80.0-100.0); MEAN CORPUSCULAR HEMOGLOBIN 30 pg (27-31); MEAN CORPUSCULAR HGB CONC 32 g/dl (33.0-37.0); MONO % 15.3 % (1.7-9.3); PLATELET COUNT 134 K/mm3 (130-400); RED BLOOD COUNT 4.68 M/mm3 (4.20-5.60); REDCELL DISTRIBUTION WIDTH-CV 13.2 % (11.5-14.5)
[2022-06-02 07:43] LABS: MUCOUS Present (NOT PRESENT); SQUAMOUS EPITHELIAL None Seen /hpf (0-10); URINE BACTERIA None Seen /hpf (NONE SEEN)
[2022-06-02 07:48] LABS: COLLECTION METHOD CLEAN CATCH; URINE APPEARANCE Clear (CLEAR/HAZY); URINE COLOR Yellow (YELLOW)
[2022-06-02 07:49] LABS: URINE BLOOD Negative (NEGATIVE); URINE GLUCOSE Negative (NEGATIVE); URINE KETONE TRACE (NEGATIVE); URINE NITRATE Negative (NEGATIVE); URINE PROTEIN(semi-quant) Negative (NEGATIVE); URINE UROBILINOGEN 0.2 E.U/dL (0.2-1.0)
[2022-06-02 07:59] LABS: ALBUMIN 3.5 gm/dL (3.5-5.0); CALCIUM 10.3 mg/dL (8.4-10.2); CREATININE, serum 1.52 mg/dL (0.72-1.25); MAGNESIUM 1.8 mg/dL (1.6-2.6); PHOSPHOROUS 2.9 mg/dL (2.3-4.7); POTASSIUM 4.3 mmol/L (3.5-4.5)
[2022-06-03 12:23] LABS: PROGRAF 5.7 ng/mL (5.0-15.0)
[2022-06-03 14:23] LABS: CYTOMEGALOVIRUS DNA PCR Not Detected (()); CYTOMEGALOVIRUS DNA PCR LOG Not Detected (())
== END ==
LOC: COL.LAB 06:48
PROVIDERS: Internal Medicine
DX: Z48.22 Encounter for aftercare following kidney transplant (principal); Z79.899 Other long term (current) drug therapy; Z84.0 Family history of diseases of the skin and subcutaneous tissue

== ENCOUNTER → 2023-10-02 | Outpatient (CLI) | payer BC, MEDICARE, MEDICAID ==
[2023-10-02 06:23] LABS: BASO % 0.3 % (0.0-2.0); EOS % 0.4 % (0.0-4.0); GRAN # 3.2 K/mm3 (1.4-6.5); GRAN % 44.5 % (42.2-75.2); HEMATOCRIT 40.8 % (42.0-52.0); LYMPH # 2.9 K/mm3 (1.2-3.4); LYMPH % 40.1 % (20.0-51.0); MEAN CELL VOLUME 91 fl (80.0-100.0); MEAN CORPUSCULAR HEMOGLOBIN 29 pg (27-31); MEAN CORPUSCULAR HGB CONC 32 g/dl (33.0-37.0); MEAN PLATELET VOLUME 9.9 fl (7.4-10.4); MONO % 14.4 % (1.7-9.3); PLATELET COUNT 168 K/mm3 (130-400); RED BLOOD COUNT 4.49 M/mm3 (4.20-5.60); REDCELL DISTRIBUTION WIDTH-CV 12.6 % (11.5-14.5)
[2023-10-02 06:32] LABS: ALBUMIN 3.7 g/dL (3.4-4.8); CALCIUM 9.3 mg/dL (8.4-10.2); CREATININE, serum 1.48 mg/dL (0.72-1.25); MAGNESIUM 1.6 mg/dL (1.6-2.6); PHOSPHOROUS 3.2 mg/dL (2.3-4.7); POTASSIUM 3.4 mEq/L (3.5-4.5)
[2023-10-02 06:44] LABS: COLLECTION METHOD CLEAN CATCH
[2023-10-02 06:54] LABS: PH 6.5 (5.0-8.5); URINE APPEARANCE CLOUDY (CLEAR/HAZY); URINE BLOOD TRACE (NEGATIVE); URINE COLOR YELLOW (YELLOW); URINE GLUCOSE NEGATIVE (NEGATIVE); URINE KETONE TRACE (NEGATIVE); URINE NITRATE POSITIVE (NEGATIVE); URINE PROTEIN(semi-quant) NEGATIVE (NEGATIVE)
[2023-10-02 06:54] LABS: THYROID STIMULATING HORMONE 0.944 uIU/mL (0.350-4.940)
[2023-10-05 05:38] LABS: CYTOMEGALOVIRUS DNA PCR Negative (Negative)
== END ==
LOC: COL.LAB 05:31
PROVIDERS: Internal Medicine
DX: Z94.0 Kidney transplant status (principal)

== ENCOUNTER → 2023-11-09 | Outpatient (CLI) | payer BC, MEDICARE, MEDICAID ==
[2023-11-09 06:37] LABS: BASO % 0.3 % (0.0-2.0); EOS % 0.4 % (0.0-4.0); GRAN # 2.9 K/mm3 (1.4-6.5); GRAN % 42.2 % (42.2-75.2); HEMATOCRIT 41.4 % (42.0-52.0); HEMOGLOBIN 12.9 g/dl (13.5-18.0); LYMPH # 2.8 K/mm3 (1.2-3.4); LYMPH % 41.6 % (20.0-51.0); MEAN CELL VOLUME 91 fl (80.0-100.0); MEAN CORPUSCULAR HEMOGLOBIN 28 pg (27-31); MEAN CORPUSCULAR HGB CONC 31 g/dl (33.0-37.0); MEAN PLATELET VOLUME 9.4 fl (7.4-10.4); MONO # 1.1 K/mm3 (0.1-0.6); MONO % 15.4 % (1.7-9.3); PLATELET COUNT 168 K/mm3 (130-400); RED BLOOD COUNT 4.56 M/mm3 (4.20-5.60); REDCELL DISTRIBUTION WIDTH-CV 12.7 % (11.5-14.5)
[2023-11-09 06:59] LABS: ALBUMIN 3.7 g/dL (3.4-4.8); CALCIUM 9.3 mg/dL (8.4-10.2); COLLECTION METHOD CLEAN CATCH; CREATININE, serum 1.55 mg/dL (0.72-1.25); MAGNESIUM 1.7 mg/dL (1.6-2.6); PHOSPHOROUS 4.3 mg/dL (2.3-4.7); POTASSIUM 3.7 mEq/L (3.5-4.5)
[2023-11-09 07:08] LABS: PH 6.5 (5.0-8.5); URINE APPEARANCE CLOUDY (CLEAR/HAZY); URINE BLOOD TRACE (NEGATIVE); URINE COLOR YELLOW (YELLOW); URINE GLUCOSE NEGATIVE (NEGATIVE); URINE KETONE NEGATIVE (NEGATIVE); URINE NITRATE POSITIVE (NEGATIVE); URINE PROTEIN(semi-quant) NEGATIVE (NEGATIVE)
[2023-11-10 01:09] LABS: PROGRAF 5.5 ng/mL (5.0-15.0)
[2023-11-11 14:10] LABS: CYTOMEGALOVIRUS DNA PCR Negative (Negative)
== END ==
LOC: COL.LAB 05:32
PROVIDERS: Internal Medicine
DX: Z48.22 Encounter for aftercare following kidney transplant (principal); Z94.0 Kidney transplant status; Z79.899 Other long term (current) drug therapy

== ENCOUNTER → 2023-12-06 | Outpatient (CLI) | payer BC, MEDICARE, MEDICAID ==
[2023-12-06 06:20] LABS: COLLECTION METHOD CLEAN CATCH
[2023-12-06 06:37] LABS: BASO % 0.6 % (0.0-2.0); EOS % 0.6 % (0.0-4.0); GRAN # 2.9 K/mm3 (1.4-6.5); GRAN % 44.2 % (42.2-75.2); HEMATOCRIT 42.2 % (42.0-52.0); HEMOGLOBIN 13.3 g/dl (13.5-18.0); LYMPH # 2.8 K/mm3 (1.2-3.4); LYMPH % 42.9 % (20.0-51.0); MEAN CELL VOLUME 89 fl (80.0-100.0); MEAN CORPUSCULAR HEMOGLOBIN 28 pg (27-31); MEAN CORPUSCULAR HGB CONC 32 g/dl (33.0-37.0); MEAN PLATELET VOLUME 9.8 fl (7.4-10.4); MONO # 0.7 K/mm3 (0.1-0.6); MONO % 11.4 % (1.7-9.3); PLATELET COUNT 147 K/mm3 (130-400); RED BLOOD COUNT 4.74 M/mm3 (4.20-5.60); REDCELL DISTRIBUTION WIDTH-CV 13.2 % (11.5-14.5)
[2023-12-06 06:42] LABS: URINE APPEARANCE CLOUDY (CLEAR/HAZY); URINE BLOOD NEGATIVE (NEGATIVE); URINE COLOR YELLOW (YELLOW); URINE GLUCOSE NEGATIVE (NEGATIVE); URINE KETONE NEGATIVE (NEGATIVE); URINE NITRATE POSITIVE (NEGATIVE); URINE PROTEIN(semi-quant) NEGATIVE (NEGATIVE)
[2023-12-06 06:57] LABS: ALBUMIN 3.7 g/dL (3.4-4.8); CALCIUM 9.2 mg/dL (8.4-10.2); CREATININE, serum 1.37 mg/dL (0.72-1.25); MAGNESIUM 1.7 mg/dL (1.6-2.6)
[2023-12-08 14:13] LABS: CYTOMEGALOVIRUS DNA PCR Negative (Negative)
== END ==
LOC: COL.LAB 05:30
PROVIDERS: Internal Medicine
DX: Z48.22 Encounter for aftercare following kidney transplant (principal); Z94.0 Kidney transplant status; Z79.899 Other long term (current) drug therapy; Z91.89 Other specified personal risk factors, not elsewhere classified

== ENCOUNTER → 2024-01-12 | Outpatient (CLI) | payer BC, MEDICARE, MEDICAID ==
[2024-01-12 05:58] LABS: COLLECTION METHOD CLEAN CATCH
[2024-01-12 06:13] LABS: BASO % 0.4 % (0.0-2.0); EOS # 0.1 K/mm3 (0.0-0.7); EOS % 0.7 % (0.0-4.0); GRAN # 3.4 K/mm3 (1.4-6.5); GRAN % 45.8 % (42.2-75.2); HEMATOCRIT 42.3 % (42.0-52.0); HEMOGLOBIN 13.4 g/dl (13.5-18.0); LYMPH # 2.8 K/mm3 (1.2-3.4); LYMPH % 37.6 % (20.0-51.0); MEAN CELL VOLUME 90 fl (80.0-100.0); MEAN CORPUSCULAR HEMOGLOBIN 29 pg (27-31); MEAN CORPUSCULAR HGB CONC 32 g/dl (33.0-37.0); MEAN PLATELET VOLUME 9.3 fl (7.4-10.4); MONO # 1.1 K/mm3 (0.1-0.6); MONO % 15.2 % (1.7-9.3); PLATELET COUNT 181 K/mm3 (130-400); RED BLOOD COUNT 4.71 M/mm3 (4.20-5.60); REDCELL DISTRIBUTION WIDTH-CV 13.4 % (11.5-14.5)
[2024-01-12 06:24] LABS: ALBUMIN 3.7 g/dL (3.4-4.8); CALCIUM 9.2 mg/dL (8.4-10.2); CREATININE, serum 1.36 mg/dL (0.72-1.25); PHOSPHOROUS 3.9 mg/dL (2.3-4.7); POTASSIUM 3.7 mEq/L (3.5-4.5)
[2024-01-12 06:32] LABS: URINE APPEARANCE CLOUDY (CLEAR/HAZY); URINE BLOOD NEGATIVE (NEGATIVE); URINE COLOR YELLOW (YELLOW); URINE GLUCOSE NEGATIVE (NEGATIVE); URINE KETONE NEGATIVE (NEGATIVE); URINE NITRATE POSITIVE (NEGATIVE); URINE PROTEIN(semi-quant) NEGATIVE (NEGATIVE)
[2024-01-13 19:15] LABS: PROGRAF 5.4 ng/mL (5.0-15.0)
[2024-01-16 14:12] LABS: CYTOMEGALOVIRUS DNA PCR Negative (Negative)
== END ==
LOC: COL.LAB 05:13
PROVIDERS: Internal Medicine
DX: Z48.22 Encounter for aftercare following kidney transplant (principal); Z79.899 Other long term (current) drug therapy; Z94.0 Kidney transplant status; Z91.89 Other specified personal risk factors, not elsewhere classified

== ENCOUNTER → 2024-01-17 | Outpatient (CLI) | payer BC, MEDICARE ==
[2024-01-17 05:56] LABS: BASO % 0.3 % (0.0-2.0); EOS % 0.3 % (0.0-4.0); GRAN # 2.6 K/mm3 (1.4-6.5); GRAN % 41.4 % (42.2-75.2); HEMATOCRIT 38.8 % (42.0-52.0); HEMOGLOBIN 12.6 g/dl (13.5-18.0); LYMPH # 2.7 K/mm3 (1.2-3.4); LYMPH % 43.1 % (20.0-51.0); MEAN CELL VOLUME 88 fl (80.0-100.0); MEAN CORPUSCULAR HEMOGLOBIN 29 pg (27-31); MEAN CORPUSCULAR HGB CONC 33 g/dl (33.0-37.0); MEAN PLATELET VOLUME 9.4 fl (7.4-10.4); MONO # 0.9 K/mm3 (0.1-0.6); MONO % 14.7 % (1.7-9.3); PLATELET COUNT 192 K/mm3 (130-400); RED BLOOD COUNT 4.42 M/mm3 (4.20-5.60); REDCELL DISTRIBUTION WIDTH-CV 13.5 % (11.5-14.5)
[2024-01-17 06:15] LABS: ALBUMIN 3.8 g/dL (3.4-4.8); CALCIUM 9.2 mg/dL (8.4-10.2); CREATININE, serum 1.31 mg/dL (0.72-1.25); MAGNESIUM 1.8 mg/dL (1.6-2.6); PHOSPHOROUS 4.3 mg/dL (2.3-4.7); POTASSIUM 3.7 mEq/L (3.5-4.5)
== END ==
LOC: COL.LAB 05:06
PROVIDERS: Internal Medicine
DX: Z48.22 Encounter for aftercare following kidney transplant (principal); Z79.899 Other long term (current) drug therapy; Z94.0 Kidney transplant status